=== PATIENT | female | born 1970 | race Caucasian/White ===

== ENCOUNTER 2019-05-26 13:51 | Outpatient (REF) | payer BC, SELFPAY ==
--- NOTE | 2019-05-26 11:45 | PAPFT_PTH ---
PATIENT: Nora Bowman LOC: [facility] U#:[id number] AGE/SX: 49/F ROOM: RE05/26/[address]: Silvia Muñoz APRN : 1970 BED: DIS: 05/26/2019 SPEC #: [id number] RECD: 05/29/19 13:04 STATUS: [place] GRADY #: [id number] CRISTY: 05/26/19 11:[address]: Silvia Muñoz DEPT: [facility] Cytology RECD BY: Diana Zaidi Tissues: 1 - CX/ENDOCX FOR PAP SMEARS Procedures: PAP THIN PREP/UVM Screening HPV DNA PROBE Comments: [id number]
== END 2019-05-26 14:11 ==
LOC: LBN 13:51
PROVIDERS: PCP Nurse Practitioner Adult Health; Visit Provider Nurse Practitioner Adult Health
DX: Z12.4 Encounter for screening for malignant neoplasm of cervix (principal); Z11.51 Encounter for screening for human papillomavirus (HPV)
CPT/HCPCS: 88142; 87624

== ENCOUNTER 2019-07-13 10:46 | Outpatient (CLI) | payer BC, SELFPAY ==
[2019-07-13 12:12] LABS: ALT 26 U/L (14-59); AST 16 U/L (15-37); Albumin 4.2 g/dL (3.4-5.0); Alkaline Phosphatase 96 U/L (46-116); Anion Gap 8.6 mmol/L (3-11); BUN 11 mg/dL (7-18); Bilirubin, Total 0.4 mg/dL (0.2-1.0); CO2 30.4 mmol/L (21.0-32.0); CREATININE 0.87 mg/dL (0.55-1.02); Calcium 9.6 mg/dL (8.5-10.1); Calculated LDL 133 mg/dL (<100); Chloride 105 mmol/L (98-107); Cholesterol 216 mg/dL (<200); Glucose 101 mg/dL (74-106); HDL Cholesterol 52 mg/dL (40-60); Potassium 4.3 mmol/L (3.5-5.1); Sodium 144 mmol/L (136-145); TSH (W/Ref FT4) 1.54 uIU/mL (0.36-3.74); Total Protein 7.3 g/dL (6.4-8.2); Triglyceride 157 mg/dL (<150)
== END 2019-07-13 11:06 ==
PROVIDERS: PCP Nurse Practitioner Adult Health; Visit Provider Nurse Practitioner Adult Health
DX: F32.9 Major depressive disorder, single episode, unspecified (principal); Z13.1 Encounter for screening for diabetes mellitus; Z13.220 Encounter for screening for lipoid disorders
CPT/HCPCS: 36415; 80053; 80061; 84443

== ENCOUNTER 2019-07-27 02:45 | Outpatient (CLI) | payer BC, SELFPAY ==
--- NOTE | 2019-07-27 09:15 | DI.MAMMO_ITS ---
EXAM: MG MAMMO SCREENING 60 MIN DUR CLINICAL HISTORY: screening, Z12.39 TECHNIQUE: Mammograms were interpreted according to the usual protocol including computer analysis w [employer] CAD system, tomosynthesis and C-view imaging. COMPARISON: 2009 FINDINGS: The breasts are composed of scattered fibroglandular densities, Breast Density category B. Bilateral breast implants are again noted which appear intact. No suspicious masses or suspicious microcalcifications are seen. No skin thickening or abnormal axillary lymph nodes are seen. There has been no significant change from prior exams. IMPRESSION: BIRADS Category 1, negative mammogram. Yearly screening mammography is recommended.
== END 2019-07-27 03:05 ==
PROVIDERS: PCP Nurse Practitioner Adult Health; Visit Provider Nurse Practitioner Adult Health
DX: Z12.31 Encounter for screening mammogram for malignant neoplasm of breast (principal); Z98.82 Breast implant status
CPT/HCPCS: 77063; 77067

== ENCOUNTER 2019-08-22 12:08 | Emergency (ER) | payer BC, SELFPAY ==
[2019-08-22 12:30] VITALS: BP 152/105; PULSE 86; RESP 18; TEMP 37.3; O2SAT 98
--- NOTE | 2019-08-22 12:45 | DI.RAD_ITS ---
EXAM: XR PORTABLE CHEST AP CLINICAL HISTORY: cough TECHNIQUE: COMPARISON: No exams were available for comparison FINDINGS: Portable views of chest were obtained. The heart is not enlarged. There are questionable faint calc ifications overlying the sub carinal region raising the possibility of healed granulomatous disease. No gross mediastinal contour abnormality seen. Lungs appear clear. No gross pleural effusion on this frontal film. IMPRESSION: No evidence of acute process.
--- NOTE | 2019-08-22 12:52 | W.ED.GENAD ---
Discharge Plan Disposition Patient Disposition: HOME Condition: Stable Discharge Details Chief Complaint: RespSymp Clinical Impression: Pneumonia Primary Care Provider: Silvia Muñoz ED Provider: Usman Shepherd Home Meds and New Rx's Prescriptions: New doxycycline hyclate 100 mg capsule 100 mg PO BID Qty: 13 RF: 0 fluconazole 150 mg tablet 150 mg PO Q3D Qty: 2 RF: 0 Continued fzvygvpusi-upmhddkdowuhk-eedy [Esgic] 50-325-40 mg tablet 1 tab PO Q6H PRNRF: 0 valacyclovir [Valtrex] 500 mg tablet 500 mg PO DAILY Qty: 90 RF: 3 Premarin 0.625 mg tablet 0.625 mg PO DAILY Qty: 90 RF: 3 bupropion HCl 150 mg tablet extended release 24 hr 150 mg PO QAM Qty: 90 RF: 3 Hold Instructions: Home Medication placed on hold at Doctor's office cbd-Curcumin 25 mg PO DAILY RF: 0 Mirena 20 mcg/24 hours (5 yrs) 52 mg intrauterine device 1 device IY ONCE RF: 0 bupropion HCl 300 mg tablet extended release 24 hr 300 mg PO QAM Qty: 90 RF: 3 gabapentin 300 mg capsule 300 mg PO QHS Qty: 14 RF: 0 Discharge Instructions Instructions: Pneumonia (ED) Additional Instructions: Please drink plenty of fluids to stay hydrated. Allow for plenty of rest. Take full course of antibiotic as prescribed. You have COVID testing pending. Please follow-up on this with your doctor. Please contact your primary care physician to arrange follow-up. Return to the ER for any worsening or new concerning symptoms. Referrals: Silvia Muñoz, COMMERCIAL SOLAR SALES CONSULTANT [Primary Care Provider] - Discharge Data Discharge Date/Time-TO BE ENTERED AT DEPARTURE: 08/22/19 14:05 Medical Decision Making 49-year-old female here with cough, congestion, fever over the past 6 days. Patient is saturating well in no respiratory distress. Patient is not septic appearing. Covid test has been performed outpatient and is pending at this time. Consider pneumonia versus bronchitis. Chest x-ray reviewed and interpreted by radiology: No acute cardiopulmonary disease. Plan to initiate treatment with doxycycline. Usual customary discharge instructions were provided. HPI General Mode of arrival: ambulatory. Date/Time Provider Initiated Documentation: 08/22/19 12:21. Limitations to Documentation: no limitations. Information obtained by: patient. HPI Narrative: 49-year-old female presents with chief complaint of cough. Patient notes she has had cough for the past 6 days. Cough has persisted. Cough is productive of clear sputum until today when she had blood mixed with sputum. She has had associated fever. Last fever couple days ago. She has associated fatigue. Patient has had shortness of breath and headache.. Patient also notes some discomfort in her right upper chest that is pleuritic. Patient denies smoking history. Related Data Home Medications Medication Instructions Recorded Confirmed cbd-Curcumin 25 mg PO DAILY 03/09/19 06/29/19 levonorgestrel 20 mcg/24 hours (5 1 device IY ONCE 03/09/19 06/29/19 yrs) 52 mg intrauterine device bupropion HCl 150 mg 24 hr tablet, 150 mg PO QAM #90 tab 03/21/19 06/29/19 extended release xurgiwmpsa-lrjyyjntuuqlx-akmkcrgw 1 tab PO Q6H PRN 03/21/19 06/29/19 50 mg-325 mg-40 mg tablet conjugated estrogens 0.625 mg 0.625 mg PO DAILY #90 tab 03/21/19 06/29/19 tablet valacyclovir 500 mg tablet 500 mg PO DAILY #90 tab 03/21/19 06/29/19 bupropion HCl 300 mg 24 hr tablet, 300 mg PO QAM #90 tab 05/26/19 06/29/19 extended release gabapentin 300 mg capsule 300 mg PO QHS #14 cap 06/29/19 06/29/19 doxycycline hyclate 100 mg PO BID #13 cap 08/22/19 fluconazole 150 mg PO Q3D #2 tab 08/22/19 Previous Rx's Medication Instructions Recorded bupropion HCl 150 mg 24 hr tablet, 150 mg PO QAM #90 tab 03/21/19 extended release conjugated estrogens 0.625 mg 0.625 mg PO DAILY #90 tab 03/21/19 tablet valacyclovir 500 mg tablet 500 mg PO DAILY #90 tab 03/21/19 bupropion HCl 300 mg 24 hr tablet, 300 mg PO QAM #90 tab 05/26/19 extended release gabapentin 300 mg capsule 300 mg PO QHS #14 cap 06/29/19 doxycycline hyclate 100 mg PO BID #13 cap 08/22/19 fluconazole 150 mg PO Q3D #2 tab 08/22/19 Allergies Allergy/AdvReac Type Severity Reaction Status Date / Time Sulfa (Sulfonamide Allergy Unverified 08/22/19 12:41 Antibiotics) General Stated Complaint: RespSymp DRE: 4 Review of Systems All systems reviewed & are unremarkable except as noted in HPI and below Cardiovascular Cardiovascular: Reports chest pain and Reports dyspnea Respiratory Respiratory: Reports cough and Reports dyspnea PFSH Medical History ADD (attention deficit disorder) (Chronic) h/o Vyvanse (constipation) & Adderall use Anxiety (Chronic) CBD Depression (Chronic) Wellbutrin Headache (Chronic) Chronic intermittent; migraine HSV (herpes simplex virus) infection (Chronic) Valtrex daily Impaired fasting glucose (Chronic) Glucose 101 07/2019 Obesity (Chronic) Sleeping difficulty (Chronic) CBD-Melatonin Surgical History Gastric bypass status for obesity (Acute ~05/2009) [place] H/O breast augmentation (Acute ~05/2002) 2002 History of appendectomy (Chronic) 1986 Previous section (Chronic) 2003 Family History Mother Anxiety Depression Hypertension Hyperlipidemia Diabetes T2 Father , From dementia with lewy body Anxiety Bladder cancer Depression Dementia Lewy body Social History Smoking/Tobacco Use Status: Never Alcohol Intake: current Alcohol Intake frequency: a few times a month Drug use: Occasionally Substance use type: marijuana Details: No IV Drug Use Adopted: No Household members: spouse Housing: house Communication Needs: None Do you need help understanding health information?: Never 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, [employer] Sexually active: Yes Do you think of yourself as: lesbian/tello/homosexual Current gender identity: female What type of physical activity do you participate in: walking Duration: 15-30 minutes/day Frequency: 1-2 times per week Seatbelt use: always Helmet use: Yes Working smoke detector in home: Yes Fire extinguisher in home: Yes Carbon monox detector in home: Yes Firearms in home: No Do you feel safe at home: Yes Do you feel safe in your relationship?: Yes History History 1 Para 1 Hx # Term Pregnancies Multiple births Hx # Pregnancies Ectopic pregnancies AB induced Hx Number of Living Children AB spontaneous Exam Const General: cooperative and no acute distress HENMT Mouth: moist mucous membranes Eyes Conjunctivae: normal conjunctivae Sclera: normal sclerae EOM: EOM intact bilaterally Neck Neck: trachea midline and supple Resp Effort & Inspection: normal respiratory effort, cough and no respiratory distress Auscultation: no rales, rhonchi (R>L) and no wheezes Cardio Jugular venous pressure: no JVD Rate: regular rate and not tachycardic Rhythm: regular rhythm Skin General skin exam: no rashes or lesions noted Neuro General: patient alert, patient awake and tone normal Extrem General: no edema Psych Appearance: grossly normal Mental Status: mental status grossly normal Course Vital Signs Vital signs: Vital Signs Temperature 37.3 C 08/22/19 12:30 Pulse 86 08/22/19 12:30 Respiratory Rate 18 08/22/19 12:30 Blood Pressure 152/105 H 08/22/19 12:30 Pulse Oximetry 98 08/22/19 12:30 Temperature 37.3 C 08/22/19 12:30 Temperature Source Skin 08/22/19 12:30 Pulse 86 08/22/19 12:30 Respiratory Rate 18 08/22/19 12:30 Respiratory Effort Non-Labored 08/22/19 12:39 Respiratory Depth Normal 08/22/19 12:39 Blood Pressure 152/105 H 08/22/19 12:30 Blood Pressure Position Sitting 08/22/19 12:30 Pulse Oximetry 98 08/22/19 12:30 Oxygen Delivery Method Room Air 08/22/19 12:30 Oxygen Flow Rate 0 08/22/19 12:30
[2019-08-22] MEDS: Doxycycline Hyclate 100 MG CAP PO (13:17)
== END 2019-08-22 14:05 | disposition home or self-care (01) ==
PROVIDERS: Emergency Provider Student in an Organized Health Care Education/Training Program; PCP Nurse Practitioner Adult Health
DX: J18.9 Pneumonia, unspecified organism (principal); R06.02 Shortness of breath
CPT/HCPCS: 99283; 71045

== ENCOUNTER 2019-09-06 10:29 | Outpatient (CLI) | payer BC, SELFPAY ==
[2019-09-06] MEDS: Omnipaque 350 MG/ML 100 ML BTL IJ (13:43)
--- NOTE | 2019-09-06 13:44 | DI.CT_ITS ---
EXAM: CT CHEST W CLINICAL HISTORY: Granulomatous disease, hempotysis, calcified lymph nodes, D71, R04.2, I89.8 TECHNIQUE: COMPARISON: XR PORTABLE CHEST AP from 08/22/2019 FINDINGS: CT examination of the chest was performed with bolus infusion of 70 cc of Omnipaque 350. Images obta ined through the upper abdomen show prior gastric surgery and unremarkable appearance of visualized p ortions of liver, spleen, pancreas, adrenals, and kidneys. There are calcified subcarinal lymph nodes consistent with healed granulomatous disease. Calcificati ons also present in left hilum. There are very subtle diffuse tree in bud opacities throughout both lungs, this is a nonspecific appe arance and may represent bronchiolitis, viral infection, or mycobacterial infection. No focal consol idation. No pleural effusion. Tracheobronchial tree appears intact. No gross mediastinal adenopathy no evide nce of pulmonary embolic disease or other major vascular abnormality no axillary or supraclavicular a denopathy. IMPRESSION: Mild diffuse pulmonary tree in bud opacities, this finding may be seen in multiple entities including mycobacterial infection, viral infection, diffuse bronchiolitis. Please correlate clinically.
== END 2019-09-06 10:49 ==
PROVIDERS: PCP Nurse Practitioner Adult Health; Visit Provider Nurse Practitioner Adult Health
DX: R05 Cough (principal); R04.2 Hemoptysis; I89.8 Other specified noninfective disorders of lymphatic vessels and lymph nodes; J84.10 Pulmonary fibrosis, unspecified; J98.4 Other disorders of lung
CPT/HCPCS: 71260; 82565; J3490

== ENCOUNTER 2021-03-18 12:35 | Outpatient (CLI) | payer OTHER, SELFPAY ==
[2021-03-18 13:00] LABS: Abs Immature Grans 0.02 10^3/uL (0.0-0.06); Absolute Basophil Count 0.04 10^3/uL (0.0-0.2); Absolute Lymphocyte Count 2.18 10^3/uL (1.2-3.4); Absolute Monocyte Count 0.43 10^3/uL (0.1-0.8); Absolute Neutrophil Count 3.53 10^3/uL (1.2-6.7); Basophils % 0.6; Eosinophils % 1.6; HCT 42.4 % (36.0-46.0); HGB 13.9 g/dL (11.2-15.7); Immature Grans % 0.3; Lymphocytes % 34.6; MCH 31.1 pg (27.0-33.0); MCHC 32.8 % (32.0-36.0); MCV 94.9 fL (80-95); MPV 10.3 fL (8.0-11.0); Monocytes % 6.8; Neutrophils % 56.1; Nucleated RBC 0 %; Platelet Count 313 10^3/uL (130-400); RBC 4.47 10^6/uL (3.93-5.22); RDW-SD 42.3 fL
[2021-03-18 13:03] LABS: Bilirubin Negative (Negative); Blood Negative (Negative); Clarity Clear (Clear); Glucose Negative (Negative); Ketones Negative (Negative); Leukocyte Esterase Trace (Negative); Nitrite Negative (Negative); Specific Gravity 1.025 (1.005-1.025); Urobilinogen 0.2 EU/dL (Up TO 0.2)
[2021-03-18 13:09] LABS: Bacteria Few HPF (Negative); C & S Indicated? Yes; Casts Negative LPF (Negative); Crystals Negative HPF (Negative); Epithelial Cells Few HPF (Negative); Mucus Negative (Negative); RBC 0-2 HPF (0-2)
[2021-03-18 13:29] LABS: Lipase 169 U/L (73-393)
[2021-03-18 13:35] LABS: ALT 26 U/L (14-59); AST 15 U/L (15-37); Albumin 4.2 g/dL (3.4-5.0); Alkaline Phosphatase 91 U/L (46-116); Anion Gap 7.8 mmol/L (3-11); BUN 14 mg/dL (7-18); Bilirubin, Total 0.2 mg/dL (0.2-1.0); CO2 29.2 mmol/L (21.0-32.0); Calcium 9.4 mg/dL (8.5-10.1); Chloride 108 mmol/L (98-107); Glucose 93 mg/dL (74-106); Potassium 4.5 mmol/L (3.5-5.1); Sodium 145 mmol/L (136-145); Total Protein 7.3 g/dL (6.4-8.2)
== END 2021-03-18 12:36 | disposition home or self-care (01) ==
LOC: LBO 12:36
PROVIDERS: PCP Nurse Practitioner Adult Health; Visit Provider Family Medicine
DX: K80.50 Calculus of bile duct without cholangitis or cholecystitis without obstruction (principal); R10.11 Right upper quadrant pain; R19.7 Diarrhea, unspecified
CPT/HCPCS: 36415; 80053; 83690; 87077; 81003; 81015; 85025; 87086; 87186

== ENCOUNTER 2021-09-11 14:16 | Emergency (ER) | payer OTHER, SELFPAY ==
[2021-09-11 14:27] VITALS: BP 139/65; PULSE 69; RESP 16; TEMP 36.9; O2SAT 97
--- NOTE | 2021-09-11 14:45 | RT.EKG_ITS ---
APPROVED REPORT Exam: Resting ECG Reason for Exam: mIDEPIGASTRIC PAIN, VOMITING Patient Location: E HR:71 bpm ECG Measurements Heart Rate 71 AXIS [place] 170 P 64 QRSd 93 QRS 75 QT 394 T 65 QTc 428 Conclusion Sinus rhythm...normal P axis, V-rate 60- 99 Probable left atrial enlargement...P >50mS, <-0.10mV V1 Anteroseptal infarct, age indeterminate...Q >35mS, T neg, V1-V2. Sinus. Normal axis. No STEMI. I have reviewed and interpreted ECG and agree with software generated interpretation.
--- NOTE | 2021-09-11 14:56 | ED.GENADUL_ITS ---
Discharge Plan Disposition Patient Disposition: HOME Condition: Stable Discharge Details Clinical Impression: UTI (urinary tract infection), Common bile duct dilatation, Gallstones Primary Care Provider: Silvia Muñoz ED Provider: Danae Adames Home Meds and New Rx's Prescriptions: New cephalexin 500 mg tablet 500 mg PO BID 7 Days Qty: 14 0RF Continued zmcfefdhpx-ywlrqydqhuuns-dmsx [Esgic] 50-325-40 mg tablet 1 tab PO Q6H PRN0RF Label Comments: for headache gabapentin 600 mg tablet 300 - 600 mg PO QHS Qty: 90 1RF Rx Instructions: Hot flashes, panic attacks bupropion HCl 300 mg tablet extended release 24 hr 300 mg PO QAM Qty: 90 3RF Rx Instructions: depression bupropion HCl 150 mg tablet extended release 24 hr 150 mg PO QAM Qty: 90 3RF Hold Instructions: Home Medication placed on hold at Doctor's office MethylPro 15 mg PO DAILY 0RF Label Comments: Mood (recommended by psychiatry) Mirena 20 mcg/24 hours (5 yrs) 52 mg intrauterine device 1 device IY ONCE 0RF cholecalciferol (vitamin D3) 125 mcg (5,000 unit) capsule 125 mcg PO DAILY 0RF omega-3 fatty acids [Fish Oil Concentrate] 1,000 mg capsule 1,000 mg PO DAILY 0RF clonazepam 0.5 mg tablet 0.5 mg PO DAILY PRN (Reason: acute anxiety) Qty: 30 1RF valacyclovir [Valtrex] 500 mg tablet 500 mg PO PRN PRN0RF Rx Instructions: HSV suppression Discharge Instructions Instructions: Biliary Colic (ED), Gallstones (ED), Urinary Tract Infection in Women (ED) Additional Instructions: There is a questionable dilated common bile duct near the gallbladder on the CT. The radiologist is recommending an MRI possibly for tomorrow. Radiology department can do an MRI for you tomorrow afternoon. An outpatient order for an MRCP was stat to the radiology department. They should call you to confirm this appointment. This could mean that you passed a gallstone or there is a gallstone stuck in your common bile duct. The labs are all largely within normal limits. Does show signs of a possible early urinary tract infection which we will give you antibiotics for. Please take the antibiotic twice a day with food for the next 7 days. You may also choose to discuss a MRCP with your primary care provider. However, if recurrent pain nausea vomiting or any concerns please return to the ER. Follow up with primary care provider in 3-5 days. Return to ED sooner if any worsening or concerns. Increase oral fluids. Please take Tylenol or Ibuprofen with food every 4-6 hours as needed for pain and swelling. Referrals: Silvia Muñoz, SENIOR ORACLE APPLICATIONS DEVELOPER [Primary Care Provider] - 3 days Discharge Data Discharge Date/Time-TO BE ENTERED AT DEPARTURE: 09/11/21 16:42 Medical Decision Making 51-year-old female presents to the ER with chief complaint of left flank pain. Patient reports that yesterday she had some midepigastric pain and some vomiting which has resolved. She does still have some lower abdominal pain. She endorses chills no fever she describes alternating constipation with diarrhea. She does have a past surgical history of a gastric sleeve and gastric bypass 2009 and . Does have a history of appendectomy. She did take her normal daily medications prior to arrival did not take any Tylenol or ibuprofen. Cardiac work-up ordered including EKG, serial troponins, lipase. Urinalysis. Will order a CT abdomen pelvis. Differential diagnosis includes but not limited to gastroenteritis, irritable bowel syndrome, coronary artery disease, viral illness, pyelonephritis, UTI. Labs largely unremarkable. Received call from Dr. Rodríguez radiologist regarding patient CT scan. There is dilatation of the common bile duct raising possibility with common bile duct obstruction. There is cholelithiasis noted he recommends MRCP possibly tomorrow. Outpatient order for MRCP completed I did speak with [employer] who states that it would be tomorrow afternoon if possible. Will discuss plan with patient and discharged to home. Urinalysis shows trace blood, small leukocytes 5-10 WBCs culture is pending at this time. Will treat empirically for possible UTI. LB 1600 I initially signed up for this patient however her diagnostic study returned and she was discharged by Libra Feldman prior to my involvement in this patient HPI General Mode of arrival: ambulatory . Date/Time Provider Initiated Documentation: 09/11/21 14:48 . Limitations to Documentation: no limitations . Information obtained by: patient, RN notes reviewed and old records reviewed . HPI Narrative: 51-year-old female presents to the ER with chief complaint of left flank pain. Patient reports that yesterday she had some midepigastric pain and some vomiting which has resolved. She does still have some lower abdominal pain. She endorses chills no fever she describes alternating constipation with diarrhea. She does have a past surgical history of a gastric sleeve and gastric bypass 2009 and . Does have a history of appendectomy. She did take her normal daily medications prior to arrival did not take any Tylenol or ibuprofen. Related Data Home Medications Medication Instructions Recorded Confirmed levonorgestrel 20 mcg/24 hours (7 1 device IY ONCE 03/09/19 09/11/21 yrs) 52 mg intrauterine device (Mirena) asjijkfaio-hsnjvjsqgfrgc-aygokpmg 1 tab PO Q6H PRN 03/21/19 09/11/21 50 mg-325 mg-40 mg tablet (Esgic) bupropion HCl 150 mg 24 hr tablet, 150 mg PO QAM #90 tab 02/17/21 09/11/21 extended release bupropion HCl 300 mg 24 hr tablet, 300 mg PO QAM #90 tab 02/17/21 09/11/21 extended release gabapentin 600 mg tablet 300 - 600 mg PO QHS #90 tab 02/17/21 09/11/21 MethylPro 15 mg PO DAILY 02/18/21 09/11/21 cholecalciferol (vitamin D3) 125 125 mcg PO DAILY 03/18/21 09/11/21 mcg (5,000 unit) capsule clonazepam 0.5 mg tablet 0.5 mg PO DAILY PRN #30 tab 05/16/21 09/11/21 omega-3 fatty acids 1,000 mg 1,000 mg PO DAILY 05/16/21 09/11/21 capsule (Fish Oil Concentrate) cephalexin 500 mg tablet 500 mg PO BID 7 Days #14 tab 09/11/21 valacyclovir 500 mg tablet 500 mg PO PRN PRN 09/11/21 09/11/21 (Valtrex) Previous Rx's Medication Instructions Recorded bupropion HCl 150 mg 24 hr tablet, 150 mg PO QAM #90 tab 02/17/21 extended release bupropion HCl 300 mg 24 hr tablet, 300 mg PO QAM #90 tab 02/17/21 extended release gabapentin 600 mg tablet 300 - 600 mg PO QHS #90 tab 02/17/21 clonazepam 0.5 mg tablet 0.5 mg PO DAILY PRN #30 tab 05/16/21 cephalexin 500 mg tablet 500 mg PO BID 7 Days #14 tab 09/11/21 Allergies Allergy/AdvReac Type Severity Reaction Status Date / Time Sulfa (Sulfonamide Allergy Verified 07/09/21 08:51 Antibiotics) General Stated Complaint: Nk/Back Pain DRE: 3 Review of Systems All systems reviewed & are unremarkable except as noted in HPI and below Gastrointestinal Gastrointestinal: Reports abdominal pain, Denies diarrhea, Reports nausea (Resolved) and Reports vomiting (Resolved) Genitourinary Genitourinary: Reports as per HPI, Reports dysuria and Reports flank pain PFSH All Active Problems UTI (urinary tract infection) (Acute) Common bile duct dilatation (Acute) Gallstones (Acute) Cholelithiasis (Acute) Impaired fasting glucose (Chronic) Glucose 101 07/2019 Generalized anxiety disorder (Chronic) Sleeping difficulty (Chronic) CBD-Melatonin HSV (herpes simplex virus) infection (Chronic) Valtrex daily Headache (Chronic) Chronic intermittent; migraine Depression (Chronic) Wellbutrin Obesity (Chronic) ADD (attention deficit disorder) (Chronic) h/o Vyvanse (constipation) & Adderall use Medical History Cough with hemoptysis 09/25/19 Telehealth with [facility] Pulomonlogy; self-limited & resolved; Pulm states no further work-up needed, unless reoccurs--then revisit pulm with CT- chest, bronch, labs, etc. (Klaudia Sanches MD at [facility]) Granulomatous disease CT shows groundglass nodular opacities (with f/u resolved); [facility] Pulm Linden Mina MD Mediastinal adenopathy 09/25/19 Telehealth with [facility] Pulmonology, No further F/U since condition resolved; if recurs-->[facility] Pulm/Monica Mina Surgical History Gastric bypass status for obesity (~05/2009) [place] H/O breast augmentation (~05/2002) 2003 History of appendectomy 1986 Previous section 2003 Tarsal tunnel syndrome With repair 2009 ([place]) Family History Mother Anxiety Depression Hypertension Hyperlipidemia Diabetes T2 Father , From dementia with lewy body Anxiety Bladder cancer Depression Dementia Lewy body Social History Smoking/Tobacco Use Status: Never Smoking risk assessment performed?: Yes Alcohol Intake: current Alcohol Intake frequency: a few times a month Drug use: Occasionally Substance use type: marijuana Details: No IV Drug Use Adopted: No Household members: spouse Housing: house Communication Needs: None Do you need help understanding health information?: Never 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[employer], [employer] Sexually active: Yes Do you think of yourself as: lesbian/tello/homosexual Current gender identity: female What type of physical activity do you participate in: walking Duration: 15-30 minutes/day Frequency: 1-2 times per week Seatbelt use: always Helmet use: Yes Working smoke detector in home: Yes Fire extinguisher in home: Yes Carbon monox detector in home: Yes Firearms in home: No Do you feel safe at home: Yes Do you feel safe in your relationship?: Yes History History 1 Para 1 Hx # Term Pregnancies Multiple births Hx # Pregnancies Ectopic pregnancies AB induced Hx Number of Living Children AB spontaneous Exam Narrative Exam Narrative: Constitutional: Alert and oriented x3. Appears stated age. Normal body habitus. Head: Normocephalic, no trauma. Eyes: Pupils PERRL, Red reflex noted, EOM's intact. Eyelids symmetrical without lesions, discharge, or swelling. ENT: Bilateral TM's WNL, External ear normal to inspection, no mastoid TTP, swelling, or erythema, Nasal turbinates WNL, no nasal discharge. Normal dentition, Posterior pharynx WNL, no exudate. Chest: RRR, Normal S1, S2, distal pulses intact. Resp: Lungs clear to auscultation bilaterally, no wheezes, rales, or rhonchi. Abdomen: Soft, non-distended, Normoactive bowel sounds all 4 quads. Musculoskeletal: Normal gait, 5/5 strength to all four extremities. Skin: No suspicious rashes or lesions. Capillary refill less than 2 sec. Neurologic: Cranial nerves II-XII intact. Alert and oriented x 3. Motor: No deficits noted. Sensory: Intact bilaterally all 4 extremities. Reflexes: DTR's intact bilaterally.. Hematologic/Lymphatic: No ecchymosis, no lymphadenopathy. Course Vital Signs Vital signs: Vital Signs Temperature 36.9 C 09/11/21 14:27 Pulse 69 09/11/21 14:27 Respiratory Rate 16 09/11/21 14:27 Blood Pressure 139/65 09/11/21 14:27 Pulse Oximetry 97 09/11/21 14:27 Temperature 36.9 C 09/11/21 14:27 Pulse 69 09/11/21 14:27 Respiratory Rate 16 09/11/21 14:27 Respiratory Effort 09/11/21 14:40 Blood Pressure 139/65 09/11/21 14:27 Pulse Oximetry 97 09/11/21 14:27 Oxygen Delivery Method Room Air 09/11/21 14:27 Oxygen Flow Rate 0 09/11/21 14:27 Pain Level 7 09/11/21 14:27 Comment 09/11/21 14:27 Sign Out Sign Out Data: Sign Out Comment: Midepigastric abdominal pain, nausea vomiting yesterday which has resolved. Here with left flank pain. Pending CT abdomen pelvis. Does have leukocyte in urine. Possible UTI. Cardiac workup ordered and negative. Last updated by Danae Adames at 09/11/21 16:05
--- NOTE | 2021-09-11 15:00 | DI.CT_ITS ---
Exam(s) CT ABDOMEN PELVIS W EXAM: CT ABDOMEN PELVIS W INDICATION: N/V/D, Abdominal Pain. COMPARISON: CT CT CHEST W from 09/06/2019 TECHNIQUE: FINDINGS: CT examination of the abdomen and pelvis was performed with a bolus infusion of 100 cc of Omnipaque 3 50. Images obtained through the lung bases are unremarkable. Prior gastric surgery noted. The liver is unremarkable in appearance. The gallbladder contains stones and is distended. No gross gallbladder wall thickening or pericholec ystic fluid collection. There is extrahepatic biliary dilatation, with 13-14 millimeter maximal diam eter common bile duct tapering in the head of the pancreas. No definite obstructing stone seen. No definite pancreatic head lesion.. Pancreas appears normal. Spleen is unremarkable in appearance. Adrenals appear normal. The kidneys are unremarkable with no evidence of hydronephrosis, nephrolithiasis, or renal mass.. Ur inary bladder is nearly empty and cannot be evaluated.. Abdominal aorta is of normal diameter and no major vascular abnormality is seen. No abdominal wall hernia. No abdominal or pelvic adenopathy. VOUCHER EXAMINER structures appear intact with an IUD in place in the uterus.. Appendix is not specifically visualized but there is no evidence of appendicitis.. No evidence of di verticulitis or bowel obstruction. IMPRESSION: Dilatation of the common bile duct, raising the possibility of a distal common bile duct obstruction of uncertain etiology. Cholelithiasis is noted. Additional evaluation with MRCP is suggested.. RADIATION DOSE DELIVERED: 1,059.94mGy.cm Total DLP 1,059.94mGy.cm Total DLP !Error CTDIvol RADIATION OPTIMIZATION: All CT scans at this facility use at least one of these dose optimization te chniques: automated exposure control; mA and/or kV adjustment per patient size (includes targeted exa ms where dose is matched to clinical indication); or iterative reconstruction.
[2021-09-11 15:10] LABS: Abs Immature Grans 0.03 10^3/uL (0.0-0.06); Absolute Basophil Count 0.03 10^3/uL (0.0-0.2); Absolute Eosinophil Count 0.11 10^3/uL (0.0-0.7); Absolute Lymphocyte Count 2.27 10^3/uL (1.2-3.4); Absolute Monocyte Count 0.47 10^3/uL (0.1-0.8); Absolute Neutrophil Count 7.17 10^3/uL (1.2-6.7); Basophils % 0.3; Eosinophils % 1.1; HCT 43.7 % (36.0-46.0); HGB 14.4 g/dL (11.2-15.7); Immature Grans % 0.3; Lymphocytes % 22.5; MCH 31.2 pg (27.0-33.0); MCV 94.8 fL (80-95); MPV 10.2 fL (8.0-11.0); Monocytes % 4.7; Neutrophils % 71.1; Platelet Count 340 10^3/uL (130-400); RBC 4.61 10^6/uL (3.93-5.22); RDW 12.6 % (11.7-14.6); WBC 10.08 10^3/uL (4.4-10.8)
[2021-09-11 15:12] LABS: Bilirubin Negative (Negative); Blood Trace-intact (Negative); Clarity Clear (Clear); Glucose Negative (Negative); Ketones Negative (Negative); Leukocyte Esterase Small (Negative); Nitrite Negative (Negative); Specific Gravity 1.015 (1.005-1.025); Urobilinogen 0.2 EU/dL (Up TO 0.2)
[2021-09-11 15:19] LABS: Bacteria Moderate HPF (Negative); C & S Indicated? Yes; Casts Negative LPF (Negative); Crystals Negative HPF (Negative); Epithelial Cells Few HPF (Negative); Mucus Negative (Negative); RBC 0-2 HPF (0-2)
[2021-09-11 15:25] LABS: ALT 39 U/L (14-59); AST 22 U/L (15-37); Albumin 4.3 g/dL (3.4-5.0); Alkaline Phosphatase 91 U/L (46-116); Anion Gap 10.7 mmol/L (3-11); BUN 18 mg/dL (7-18); Bilirubin, Total 0.3 mg/dL (0.2-1.0); CO2 27.3 mmol/L (21.0-32.0); Calcium 9.5 mg/dL (8.5-10.1); Chloride 106 mmol/L (98-107); Glucose 96 mg/dL (74-106); Lipase 206 U/L (73-393); Magnesium 2.2 mg/dL (1.8-2.4); Potassium 3.8 mmol/L (3.5-5.1); Sodium 144 mmol/L (136-145); Total Protein 7.8 g/dL (6.4-8.2); Troponin I < 50 ng/L (<or=60)
[2021-09-11] MEDS: Omnipaque 350 MG/ML 100 ML BTL IJ (15:52)
[2021-09-11 16:43] VITALS: BP 128/72; PULSE 72; RESP 16; TEMP 36.6; O2SAT 99
[2021-09-11] MEDS: Cephalexin 500 MG CAP PO (16:44)
--- NOTE | 2021-09-12 09:33 | ED.PROG_ITS ---
Date of service: 09/12/21 Time of Service: 09:34 Medical Decision Making Call received from radiology regarding MRCP which was ordered yesterday. They are requesting prior authorization. Case number was provided to me and request to do [id number] discussion. I did speak with Dr. Parker with [facility] regarding the case. Patient does qualify for MRCP without due to CBD dilation. Authorization number [id number] was given to radiology department. Sign Out Sign Out Data: Sign Out Comment: Midepigastric abdominal pain, nausea vomiting yesterday which has resolved. Here with left flank pain. Pending CT abdomen pelvis. Does have leukocyte in urine. Possible UTI. Cardiac workup ordered and negative. Last updated by Danae Adames at 09/11/21 16:05 Discharge Plan Disposition Patient Disposition: HOME Condition: Stable Discharge Details Clinical Impression: UTI (urinary tract infection), Common bile duct dilatation, Gallstones Primary Care Provider: Silvia Muñoz ED Provider: Danae Adames Home Meds and New Rx's Prescriptions: New cephalexin 500 mg tablet 500 mg PO BID 7 Days Qty: 14 0RF Continued kqkefkxtjz-velojtcumbfao-bdpf [Esgic] 50-325-40 mg tablet 1 tab PO Q6H PRN0RF Label Comments: for headache gabapentin 600 mg tablet 300 - 600 mg PO QHS Qty: 90 1RF Rx Instructions: Hot flashes, panic attacks bupropion HCl 300 mg tablet extended release 24 hr 300 mg PO QAM Qty: 90 3RF Rx Instructions: depression bupropion HCl 150 mg tablet extended release 24 hr 150 mg PO QAM Qty: 90 3RF Hold Instructions: Home Medication placed on hold at Doctor's office MethylPro 15 mg PO DAILY 0RF Label Comments: Mood (recommended by psychiatry) Mirena 20 mcg/24 hours (5 yrs) 52 mg intrauterine device 1 device IY ONCE 0RF cholecalciferol (vitamin D3) 125 mcg (5,000 unit) capsule 125 mcg PO DAILY 0RF omega-3 fatty acids [Fish Oil Concentrate] 1,000 mg capsule 1,000 mg PO DAILY 0RF clonazepam 0.5 mg tablet 0.5 mg PO DAILY PRN (Reason: acute anxiety) Qty: 30 1RF valacyclovir [Valtrex] 500 mg tablet 500 mg PO PRN PRN0RF Rx Instructions: HSV suppression Discharge Instructions Instructions: Biliary Colic (ED), Gallstones (ED), Urinary Tract Infection in Women (ED) Additional Instructions: There is a questionable dilated common bile duct near the gallbladder on the CT. The radiologist is recommending an MRI possibly for tomorrow. Radiology depar tment can do an MRI for you tomorrow afternoon. An outpatient order for an MRCP was stat to the radiology department. They should call you to confirm this appointment. This could mean that you passed a gallstone or there is a gallstone stuck in your common bile duct. The labs are all largely within normal limits. Does show signs of a possible early urinary tract infection which we will give you antibiotics for. Please take the antibiotic twice a day with food for the next 7 days. You may also choose to discuss a MRCP with your primary care provider. However, if recurrent pain nausea vomiting or any concerns please return to the ER. Follow up with primary care provider in 3-5 days. Return to ED sooner if any worsening or concerns. Increase oral fluids. Please take Tylenol or Ibuprofen with food every 4-6 hours as needed for pain and swelling. Referrals: Silvia Muñoz NP [Primary Care Provider] - 3 days Discharge Data Discharge Date/Time-TO BE ENTERED AT DEPARTURE: 09/11/21 16:42
== END 2021-09-11 16:42 | disposition home or self-care (01) ==
PROVIDERS: Emergency Provider Registered Nurse Emergency; PCP Nurse Practitioner Adult Health
DX: N39.0 Urinary tract infection, site not specified (principal); B96.20 Unspecified Escherichia coli [E. coli] as the cause of diseases classified elsewhere; K83.8 Other specified diseases of biliary tract; K80.80 Other cholelithiasis without obstruction
CPT/HCPCS: 36415; 80053; 83690; 87077; 93005; 99285; 74177; 81003; 81015; 83735; 84484; 85025; 87086; 87186; 93010; 99284; J3490

== ENCOUNTER 2021-09-12 16:01 | Emergency (ER) | payer OTHER, SELFPAY ==
[2021-09-12 16:05] VITALS: BP 112/68; PULSE 73; RESP 16; TEMP 37.1; O2SAT 96
--- NOTE | 2021-09-12 16:32 | ED.GENADUL_ITS ---
Discharge Plan Disposition Patient Disposition: HOME Condition: Stable Discharge Details Clinical Impression: Common bile duct dilatation, Cholelithiasis Primary Care Provider: Silvia Muñoz ED Provider: Miah Barros Home Meds and New Rx's Prescriptions: Continued lyexjdtgba-ylpbjjzjruacl-icov [Esgic] 50-325-40 mg tablet 1 tab PO Q6H PRN0RF Label Comments: for headache gabapentin 600 mg tablet 300 - 600 mg PO QHS Qty: 90 1RF Rx Instructions: Hot flashes, panic attacks bupropion HCl 300 mg tablet extended release 24 hr 300 mg PO QAM Qty: 90 3RF Rx Instructions: depression bupropion HCl 150 mg tablet extended release 24 hr 150 mg PO QAM Qty: 90 3RF Hold Instructions: Home Medication placed on hold at Doctor's office MethylPro 15 mg PO DAILY 0RF Label Comments: Mood (recommended by psychiatry) Mirena 20 mcg/24 hours (5 yrs) 52 mg intrauterine device 1 device IY ONCE 0RF cholecalciferol (vitamin D3) 125 mcg (5,000 unit) capsule 125 mcg PO DAILY 0RF omega-3 fatty acids [Fish Oil Concentrate] 1,000 mg capsule 1,000 mg PO DAILY 0RF clonazepam 0.5 mg tablet 0.5 mg PO DAILY PRN (Reason: acute anxiety) Qty: 30 1RF valacyclovir [Valtrex] 500 mg tablet 500 mg PO PRN PRN0RF Rx Instructions: HSV suppression cephalexin 500 mg tablet 500 mg PO BID 7 Days Qty: 14 0RF Discharge Instructions Instructions: Gallstones (ED) Additional Instructions: Your imaging today did not reveal any obvious process. The common bile is slightly dilated and you do have 2 stones within the gallbladder but no signs of stone within the bile duct or evidence of obstruction. Please watch for new or worsening symptoms and return to the ER for any concerns. Follow instructions given to you yesterday at discharge can continue taking antibiotics. I have given you the name and number of our local surgical team, I do recommend reaching out to their office on Wednesday to discuss your ER visit, symptoms, abnormal imaging, and need for outpatient reevaluation. Referrals: Shivani Germain DO [OSTEOPATHIC DOCTOR] - Medical Decision Making 51-year-old female seen in the ER yesterday, work-up completed and sent for a MRI of the abdomen without contrast today for further evaluation of abdominal pain and bile duct dilatation. Patient states that she is actually feeling much improved today, denies any nausea or vomiting. Denies fever. No radiation into her back. Reports that the pain is significantly improved when compared to yesterday. We discussed the MRI results, cholelithiasis, extrahepatic biliary ductal dilatation without evidence of choledocholithiasis. No MRI evidence of a pancreatic mass. We discussed that the next step is likely a surgical referral but this would be nonemergent. I recommend giving their office a call Wednesday morning. We discussed rechecking laboratory values but given her benign exam, improving symptoms, likely little value. Patient is comfortable this plan and has no additional questions or concerns. She is comfortable with discharge and her current condition and will follow the instructions given to her yesterday, continue with antibiotics. Standard discharge and return precautions were provided. This documentation was generated using [employer] system, please disregard any oddities of phrase or misspellings. Medical Records Medical records reviewed: Yes I reviewed the patient's medical records. Imaging Data Radiologic Study: Attestation: I personally reviewed and interpreted this imaging study as follows: Imaging: MRI Radiologist's impression: Exam(s) MR ABDOMEN WO EXAM: MR ABDOMEN WO CLINICAL HISTORY: DILATED CBD,H/O NAUSEA,VOMITING,? RETAINED GALLSTONE TECHNIQUE: Multiplanar multisequence MRA of the Abdomen was performed. COMPARISON: CT CT ABDOMEN PELVIS W from 09/11/2021 FINDINGS: Liver: Unremarkable. Pancreas: Unremarkable. Gallbladder and Bile Ducts: The common duct is dilated up to 1.6 cm. No intraductal stones are seen. There is no evidence of a pancreatic mass. There are 2 of large stone seen within the gallbladder. No pericholecystic fluid. Adrenals: Unremarkable. Kidneys: Unremarkable. Spleen: Unremarkable. Bowel: Unremarkable. Aorta: Unremarkable. Soft Tissues: The patient has bilateral breast implants. Bone: Unremarkable. Lymph Nodes: Unremarkable. IMPRESSION: 1. Cholelithiasis. 2. Extrahepatic biliary ductal dilatation. No evidence of choledocholithiasis. 3. No MRI evidence of a pancreatic mass. 4. Results of this exam have been verbally communicated with provider. HPI General Mode of arrival: ambulatory . Date/Time Provider Initiated Documentation: 09/12/21 16:09 . Limitations to Documentation: no limitations . Information obtained by: patient . History of Present Illness 51 year old F presents to the emergency department with the chief complaint of abd pain, MR results, described as mild, with intensity rated at 2. Quality is described as aching, and is localized to the abdomen. Patient reports no radiation. Patient started experiencing this day(s) (2) and it has been other (improving). improves with No relieving factors improve symptom(s), No exacerbating factors reported . Patient notes no other symptoms.. Patient did receive the following treatments prior to arrival, none Related Data Home Medications Medication Instructions Recorded Confirmed levonorgestrel 20 mcg/24 hours (7 1 device IY ONCE 03/09/19 09/11/21 yrs) 52 mg intrauterine device (Mirena) pijmvcxirw-hufksmgvibkph-lxrfqpnb 1 tab PO Q6H PRN 03/21/19 09/11/21 50 mg-325 mg-40 mg tablet (Esgic) bupropion HCl 150 mg 24 hr tablet, 150 mg PO QAM #90 tab 02/17/21 09/11/21 extended release bupropion HCl 300 mg 24 hr tablet, 300 mg PO QAM #90 tab 02/17/21 09/11/21 extended release gabapentin 600 mg tablet 300 - 600 mg PO QHS #90 tab 02/17/21 09/11/21 MethylPro 15 mg PO DAILY 02/18/21 09/11/21 cholecalciferol (vitamin D3) 125 125 mcg PO DAILY 03/18/21 09/11/21 mcg (5,000 unit) capsule clonazepam 0.5 mg tablet 0.5 mg PO DAILY PRN #30 tab 05/16/21 09/11/21 omega-3 fatty acids 1,000 mg 1,000 mg PO DAILY 05/16/21 09/11/21 capsule (Fish Oil Concentrate) cephalexin 500 mg tablet 500 mg PO BID 7 Days #14 tab 09/11/21 valacyclovir 500 mg tablet 500 mg PO PRN PRN 09/11/21 09/11/21 (Valtrex) Previous Rx's Medication Instructions Recorded bupropion HCl 150 mg 24 hr tablet, 150 mg PO QAM #90 tab 02/17/21 extended release bupropion HCl 300 mg 24 hr tablet, 300 mg PO QAM #90 tab 02/17/21 extended release gabapentin 600 mg tablet 300 - 600 mg PO QHS #90 tab 02/17/21 clonazepam 0.5 mg tablet 0.5 mg PO DAILY PRN #30 tab 05/16/21 cephalexin 500 mg tablet 500 mg PO BID 7 Days #14 tab 09/11/21 Allergies Allergy/AdvReac Type Severity Reaction Status Date / Time Sulfa (Sulfonamide Allergy Verified 07/09/21 08:51 Antibiotics) General Stated Complaint: Recheck DRE: 4 Review of Systems Constitutional Constitutional: Denies fever(s) Cardiovascular Cardiovascular: Denies chest pain Gastrointestinal Gastrointestinal: Reports abdominal pain, Reports constipation, Denies diarrhea, Denies nausea and Denies vomiting Genitourinary Genitourinary: Denies abnormal vaginal bleeding, Denies dysuria and Denies vaginal discharge Musculoskeletal Musculoskeletal: Denies back pain PFSH All Active Problems UTI (urinary tract infection) (Acute) Common bile duct dilatation (Acute) Gallstones (Acute) Cholelithiasis (Acute) Impaired fasting glucose (Chronic) Glucose 101 07/2019 Generalized anxiety disorder (Chronic) Sleeping difficulty (Chronic) CBD-Melatonin HSV (herpes simplex virus) infection (Chronic) Valtrex daily Headache (Chronic) Chronic intermittent; migraine Depression (Chronic) Wellbutrin Obesity (Chronic) ADD (attention deficit disorder) (Chronic) h/o Vyvanse (constipation) & Adderall use Medical History Cough with hemoptysis 09/25/19 Telehealth with [facility] [place] Pulomonlogy; self-limited & resolved; Pulm states no further work-up needed, unless reoccurs--then revisit pulm with CT- chest, bronch, labs, etc. (Klaudia Sanches MD at [facility] [place]) Granulomatous disease CT shows groundglass nodular opacities (with f/u resolved); [facility] [place] Pulm Linden Mina MD Mediastinal adenopathy 09/25/19 Telehealth with [facility] [place] Pulmonology, No further F/U since condition resolved; if recurs-->[facility] [place] Pulm/Monica Mina Surgical History Gastric bypass status for obesity (~05/2009) [place] ([place]) H/O breast augmentation (~05/2002) 2002 History of appendectomy 1986 Previous section 2003 Tarsal tunnel syndrome With repair 2010 ([place]) Family History Mother Anxiety Depression Hypertension Hyperlipidemia Diabetes T2 Father , From dementia with lewy body Anxiety Bladder cancer Depression Dementia Lewy body Social History Smoking/Tobacco Use Status: Never Smoking risk assessment performed?: Yes Alcohol Intake: current Alcohol Intake frequency: a few times a month Drug use: Occasionally Substance use type: marijuana Details: No IV Drug Use Adopted: No Household members: spouse Housing: house Communication Needs: None Do you need help understanding health information?: Never 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, [employer] Sexually active: Yes Do you think of yourself as: lesbian/tello/homosexual Current gender identity: female What type of physical activity do you participate in: walking Duration: 15-30 minutes/day Frequency: 1-2 times per week Seatbelt use: always Helmet use: Yes Working smoke detector in home: Yes Fire extinguisher in home: Yes Carbon monox detector in home: Yes Firearms in home: No Do you feel safe at home: Yes Do you feel safe in your relationship?: Yes History History 1 Para 1 Hx # Term Pregnancies Multiple births Hx # Pregnancies Ectopic pregnancies AB induced Hx Number of Living Children AB spontaneous Exam Const General: cooperative, healthy appearing, comfortable and no acute distress Orientation: alert and awake HENMT Head: normal to inspection, normocephalic and atraumatic Eyes Conjunctivae: conjunctivae normal Neck Neck: normal visual inspection, trachea midline and supple Resp Effort & Inspection: normal respiratory effort and able to speak in complete sentences Cardio Rate: regular rate Rhythm: regular rhythm GI Palpation: soft, not firm, no guarding, no pulsatile masses and tender in the epigastrum (mild); Negative for with no rebound tenderness Back/Spine/Pelvis Back: No back tenderness Skin General skin exam: no rashes or lesions noted Neuro General: patient alert, patient awake, moves all extremities and no focal motor deficits Sensory Exam: no sensory deficits noted Psych Appearance: grossly normal Mental Status: mental status grossly normal Course Vital Signs Vital signs: Vital Signs Temperature 37.1 C 09/12/21 16:05 Pulse 73 09/12/21 16:05 Respiratory Rate 16 09/12/21 16:05 Blood Pressure 112/68 09/12/21 16:05 Pulse Oximetry 96 09/12/21 16:05 Temperature 37.1 C 09/12/21 16:05 Temperature Source Temporal Artery Scan 09/12/21 16:05 Pulse 73 09/12/21 16:05 Respiratory Rate 16 09/12/21 16:05 Respiratory Effort Non-Labored 09/12/21 16:08 Blood Pressure 112/68 09/12/21 16:05 Blood Pressure Position Sitting 09/12/21 16:05 Pulse Oximetry 96 09/12/21 16:05 Oxygen Delivery Method Room Air 09/12/21 16:05 Oxygen Flow Rate 0 09/12/21 16:05
== END 2021-09-12 16:44 | disposition home or self-care (01) ==
PROVIDERS: Emergency Provider Physician Assistant; PCP Nurse Practitioner Adult Health
DX: K80.20 Calculus of gallbladder without cholecystitis without obstruction (principal); K83.8 Other specified diseases of biliary tract

== ENCOUNTER 2021-09-12 18:24 | Outpatient (CLI) | payer OTHER, SELFPAY ==
--- NOTE | 2021-09-12 | DI.MRI_ITS ---
Exam(s) MR ABDOMEN WO EXAM: MR ABDOMEN WO CLINICAL HISTORY: DILATED CBD,H/O NAUSEA,VOMITING,? RETAINED GALLSTONE TECHNIQUE: Multiplanar multisequence MRA of the Abdomen was performed. COMPARISON: CT CT ABDOMEN PELVIS W from 09/11/2021 FINDINGS: Liver: Unremarkable. Pancreas: Unremarkable. Gallbladder and Bile Ducts: The common duct is dilated up to 1.6 cm. No intraductal stones are seen. There is no evidence of a pancreatic mass. There are 2 of large stone seen within the gallbladder. No pericholecystic fluid. Adrenals: Unremarkable. Kidneys: Unremarkable. Spleen: Unremarkable. Bowel: Unremarkable. Aorta: Unremarkable. Soft Tissues: The patient has bilateral breast implants. Bone: Unremarkable. Lymph Nodes: Unremarkable. IMPRESSION: 1. Cholelithiasis. 2. Extrahepatic biliary ductal dilatation. No evidence of choledocholithiasis. 3. No MRI evidence of a pancreatic mass. 4. Results of this exam have been verbally communicated with provider. DATA REPOSITORY:
== END 2021-09-12 18:44 ==
LOC: DI 18:25
PROVIDERS: PCP Nurse Practitioner Adult Health; Visit Provider Registered Nurse Emergency
DX: R11.2 Nausea with vomiting, unspecified (principal); K83.8 Other specified diseases of biliary tract; K80.20 Calculus of gallbladder without cholecystitis without obstruction
CPT/HCPCS: 74181

== ENCOUNTER 2021-10-29 18:28 | Outpatient (REF) | payer OTHER, SELFPAY | END 2021-10-29 18:29 | disposition home or self-care (01) | LOC: LBN 18:28 | PROVIDERS: PCP Nurse Practitioner Adult Health; Visit Provider Nurse Practitioner Adult Health | DX: R30.0 Dysuria (principal) | CPT/HCPCS: 87077; 87086; 87186 ==

== ENCOUNTER 2022-07-21 13:31 | Emergency (ER) | payer BC, SELFPAY ==
[2022-07-21] VITALS (16 sets, daily range): BP systolic 117–132; BP diastolic 72–94; PULSE 62–83; RESP 2–20; TEMP 36.6–36.8; O2SAT 93–100
--- NOTE | 2022-07-21 13:45 | RT.EKG_ITS ---
APPROVED REPORT Exam: Resting ECG Reason for Exam: Right upper quadrant pain Patient Location: E HR:62 bpm ECG Measurements Heart Rate 62 AXIS AR 182 P 63 QRSd 88 QRS 85 QT 392 T 64 QTc 399 Conclusion Sinus rhythm...normal P axis, V-rate 60- 99 Probable left atrial enlargement...P >50mS, <-0.10mV V1 Anteroseptal infarct, age indeterminate...Q >35mS, T neg, V1-V2 narrow complex normal sinus rhythm at a rate of 62. Normal axis. No ST segment abnormalities. No T wave inversions. T wave inversion in aVL. Appears similar to prior dated last year.
--- NOTE | 2022-07-21 13:53 | DI.US_ITS ---
Exam(s) US ABDOMEN LIMITED EXAM: US ABDOMEN LIMITED CLINICAL HISTORY: Right upper quadrant pain TECHNIQUE: Ultrasound abdomen performed using standard protocol. COMPARISON: US US ABDOMEN from 03/27/[address] ABDOMEN PELVIS W from 09/11/2021 FINDINGS: PANCREAS: Normal where visualized. LIVER: Normal. Hepatopedal flow in the Portal Vein. The liver measures in 16.6 cm length. GALLBLADDER:Gallstones are present. No evidence of wall thickening. No pericholecystic fluid identif ied. BILIARY SYSTEM: Common bile duct measures 0.9 cm. This is unchanged compared to the prior examinatio ns.. No intrahepatic biliary ductal dilation. BUSTILLOS'S SIGN: Negative. RIGHT KIDNEY: Kidney is normal in size. No evidence of renal calculi. There is again seen prominence of the right renal pelvis. This is unchanged and likely reflects an extrarenal pelvis. This has a similar appearance compared to the CT scan from 09/11/2021. No renal mass or cyst identified. ASCITES: None seen. IMPRESSION: 1. Cholelithiasis. No finding sonographically to suggest acute cholecystitis. 2. Stable size of the common bile duct. No intrahepatic biliary ductal dilatation. 3. Findings were discussed with Jaun Kendall at 3:24 p.m. on 07/21/2022. DATA REPOSITORY:
--- NOTE | 2022-07-21 13:55 | ED.GENADUL_ITS ---
Discharge Plan Disposition Patient Disposition: Home Discharge Details Clinical Impression: Biliary colic Primary Care Provider: Silvia Muñoz ED Provider: Bronson Jung Home Meds and New Rx's Prescriptions: Continued pfohtefkqd-onfktgshbywzi-myfw [Esgic] 50-325-40 mg tablet 1 tab PO Q6H PRN Patient Comments: for headache MethylPro 15 mg PO DAILY Patient Comments: Mood (recommended by psychiatry) cefpodoxime 200 mg tablet 200 mg PO BID Qty: 10 0RF Rx Instructions: must administer with a meal/food for UTI clonazepam 0.5 mg tablet 0.25 - 0.5 mg PO QHS MDD 10, 0.5mg tabs per 28 days PRN (Reason: severe insomnia) Qty: 10 2RF Rx Instructions: Severe insomnia; use nonpharm measures first Mirena 20 mcg/24 hours (5 yrs) 52 mg intrauterine device 1 device IY ONCE gabapentin 600 mg tablet 600 - 900 mg PO QHS Qty: 145 1RF Rx Instructions: Hot flashes, night-time anxiety (dose increase 10/01/21) cholecalciferol (vitamin D3) 125 mcg (5,000 unit) capsule 125 mcg PO DAILY omega-3 fatty acids [Fish Oil Concentrate] 1,000 mg capsule 1,000 mg PO DAILY clonazepam 0.5 mg tablet 0.5 mg PO DAILY PRN (Reason: acute anxiety) Qty: 30 1RF bupropion HCl 300 mg tablet extended release 24 hr See Rx Instructions .ROUTE .COMPLEX Qty: 90 3RF Dose Instruction: TAKE 1 TABLET BY MOUTH EVERY MORNING FOR DEPRESSION Rx Instructions: TAKE 1 TABLET BY MOUTH EVERY MORNING FOR DEPRESSION pantoprazole 40 mg tablet,delayed release (DR/EC) See Rx Instructions .ROUTE .COMPLEX Qty: 30 0RF Dose Instruction: TAKE 1 TABLET BY MOUTH ONCE DAILY IN THE MORNING ON AN EMPTY STOMACH Rx Instructions: TAKE 1 TABLET BY MOUTH ONCE DAILY IN THE MORNING ON AN EMPTY STOMACH valacyclovir [Valtrex] 500 mg tablet 500 mg PO PRN PRN Rx Instructions: HSV suppression No Action bupropion HCl 150 mg tablet extended release 24 hr See Rx Instructions .ROUTE .COMPLEX Qty: 90 3RF Hold Instructions: Home Medication placed on hold at Doctor's office Dose Instruction: TAKE 1 TABLET BY MOUTH EVERY MORNING Rx Instructions: TAKE 1 TABLET BY MOUTH EVERY MORNING Discharge Instructions Additional Instructions: Please read all of the information that accompanies these instructions. You were seen in the emergency department for your abdominal pain. Your ultrasound showed no sign of a gallbladder infection. Please go the general surgery clinic on Wednesday, July 24 at 9 AM. Please return to the emergency department if if you develop nausea vomiting or any fevers. Please stick with a light diet to prevent worsening of your symptoms which are related likely to your gallbladder stone. Discharge Data Discharge Date/Time-TO BE ENTERED AT DEPARTURE: 07/21/22 16:22 Medical Decision Making Patient this is an overall very well-appearing normothermic and not tachycardic 52-year-old female with an elevated BMI and episodic right upper quadrant pain worsening for the past several weeks with subjective fevers concerning for acute cholecystitis. She does have what appears to be a stone in her neck on her limited right upper quadrant ultrasound with gallbladder wall thickening. Will obtain LFTs CBC and lipase. She is having no chest pain however will obtain a troponin and ECG. She denies routine ethanol. She has been nauseous but not vomiting. She has never had a diagnosed nephrolithiasis. She denies shortness of breath. Given her elevated BMI we will obtain a lipase to assess for pancreatitis. She does have some increased urinary frequency so we will obtain a urinalysis. She had no hydronephrosis to suggest ureterolithiasis. 3:30 PM I spoke to Dr. Vences from gen surgery who advised outpt follow with gen surg. She felt that the patient would be a good candidate for interval cholecystectomy electively. I advised patient of this plan and advised her to pursue a light diet avoiding fatty foods in the setting of her biliary colic. She had no LFT abnormalities noted leukocytosis. We will ensure that she can tolerate p.o. and plan for discharge with outpatient surgical follow-up. She was not altered to suggest ascending cholangitis. I have asked health unit secy to plan outpatient surgical follow-up. Patient has a follow-up appointment at 9 AM in the general surgery clinic. I have given her return indications and will pursue an expected trial of empiric outpatient management. Chronic conditions affecting the care of the patient: Obesity History obtained from an outside historian: Patient's . External record review: N/A Medications: None Social determinants of health affecting disposition: N/A Management discussed with: General surgery Treatment/interventions considered: N/A Response to therapies provided: N/A HPI General Date/Time Provider Initiated Documentation: 07/21/22 13:53 . HPI Narrative: This is a 52-year-old female with a history of cholelithiasis now in the emergency department in the setting of acute right upper quadrant pain after eating cereal this morning. Patient notes that she was diagnosed with cholelithiasis 5 or 6 years ago. She has had recurrent symptoms for the past 8 months that have worsened over the past 2 weeks. She has been nauseous but not vomiting. She had a subjective fever 2 days ago. She has a history of a hiatal hernia repair and 2010. She has never seen general surgery in the past. She denies any recent falls. She does note that she had an episode several years ago in which she was traveling in [place] and ate a fried meal. Subsequently she vomited when she was in [place] and she felt sick for the entire trip. Related Data Home Medications Medication Instructions Recorded Confirmed levonorgestrel 21 mcg/24 hours (8 1 device intrauterine ONCE 03/09/19 07/21/22 yrs) 52 mg intrauterine device (Mirena) cnubqxxtyc-asrpdppcovkjo-ejzalcre 1 tab PO Q6H PRN 03/21/19 07/21/22 50 mg-325 mg-40 mg tablet (Esgic) MethylPro 15 mg PO DAILY 02/18/21 07/21/22 cholecalciferol (vitamin D3) 125 125 mcg PO DAILY 03/18/21 07/21/22 mcg (5,000 unit) capsule clonazepam 0.5 mg tablet 0.5 mg PO DAILY PRN acute anxiety 05/16/21 07/21/22 #30 tabs omega-3 fatty acids 1,000 mg 1,000 mg PO DAILY 05/16/21 07/21/22 capsule (Fish Oil Concentrate) valacyclovir 500 mg tablet 500 mg PO PRN PRN 09/11/21 07/21/22 (Valtrex) gabapentin 600 mg tablet 600 - 900 mg PO QHS #145 tabs 10/01/21 07/21/22 cefpodoxime 200 mg tablet 200 mg PO BID #10 tabs 10/29/21 07/21/22 clonazepam 0.5 mg tablet 0.25 - 0.5 mg PO QHS PRN severe 10/30/21 07/21/22 insomnia #10 tabs bupropion HCl 300 mg 24 hr tablet, See Rx Instructions .Route 03/30/22 07/21/22 extended release .COMPLEX #90 tabs bupropion HCl 150 mg 24 hr tablet, See Rx Instructions .Route 04/20/22 07/21/22 extended release .COMPLEX #90 tabs pantoprazole 40 mg tablet,delayed See Rx Instructions .Route 05/29/22 07/21/22 release .COMPLEX #30 tabs Previous Rx's Medication Instructions Recorded clonazepam 0.5 mg tablet 0.5 mg PO DAILY PRN acute anxiety 05/16/21 #30 tabs gabapentin 600 mg tablet 600 - 900 mg PO QHS #145 tabs 10/01/21 cefpodoxime 200 mg tablet 200 mg PO BID #10 tabs 10/29/21 clonazepam 0.5 mg tablet 0.25 - 0.5 mg PO QHS PRN severe 10/30/21 insomnia #10 tabs bupropion HCl 300 mg 24 hr tablet, See Rx Instructions .Route 03/30/22 extended release .COMPLEX #90 tabs bupropion HCl 150 mg 24 hr tablet, See Rx Instructions .Route 04/20/22 extended release .COMPLEX #90 tabs pantoprazole 40 mg tablet,delayed See Rx Instructions .Route 05/29/22 release .COMPLEX #30 tabs Allergies Allergy/AdvReac Type Severity Reaction Status Date / Time Sulfa (Sulfonamide Allergy Verified 07/21/22 13:40 Antibiotics) General Stated Complaint: Abd Prob DRE: 3 PFSH All Active Problems (Updated 07/21/22 @ 15:37 by MARY ANN DELUCA) Biliary colic (Acute) Hot flashes due to menopause (Acute ~2020) Gabapentin Impaired fasting glucose (Chronic) Glucose 101 07/2019 Generalized anxiety disorder (Chronic) Sleeping difficulty (Chronic) CBD-Melatonin HSV (herpes simplex virus) infection (Chronic) Valtrex daily Headache (Chronic) Chronic intermittent; migraine Depression (Chronic) Wellbutrin Obesity (Chronic) Medical History ADD (attention deficit disorder) h/o Vyvanse (constipation) & Adderall use Cholelithiasis Common bile duct dilatation Cough with hemoptysis 09/25/19 Telehealth with [facility] [place] Pulomonlogy; self-limited & resolved; Pulm states no further work-up needed, unless reoccurs--then revisit pulm with CT- chest, bronch, labs, etc. (Klaudia Sanches MD at [facility] [place]) Granulomatous disease CT shows groundglass nodular opacities (with f/u resolved); [facility] Pulm Linden Mina MD Mediastinal adenopathy 09/25/19 Telehealth with [facility] Pulmonology, No further F/U since condition resolved; if recurs-->[facility] Pulm/Monica Mina Surgical History Gastric bypass status for obesity (~05/2009) [place], 2010 ([place]) H/O breast augmentation (~05/2002) 2002 History of appendectomy (~1985) 1985 Previous section (~2003) 2003 Tarsal tunnel syndrome (~2009) With repair 2009 ([place]) Family History Mother Anxiety Depression Hypertension Hyperlipidemia Diabetes T2 Father , From dementia with lewy body Anxiety Bladder cancer Depression Dementia Lewy body Social History Smoking/Tobacco Use Status: Never Smoking risk assessment performed?: Yes Alcohol Intake: current Alcohol Intake frequency: a few times a month Drug use: Occasionally Substance use type: marijuana Details: No IV Drug Use Adopted: No Household members: spouse Housing: house Communication Needs: None Do you need help understanding health information?: Never 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, [employer] Sexually active: Yes Do you think of yourself as: lesbian/tello/homosexual Current gender identity: female What type of physical activity do you participate in: walking Duration: 15-30 minutes/day Frequency: 1-2 times per week Seatbelt use: always Helmet use: Yes Working smoke detector in home: Yes Fire extinguisher in home: Yes Carbon monox detector in home: Yes Firearms in home: No Do you feel safe at home: Yes Do you feel safe in your relationship?: Yes History History 1 Para 1 Hx # Term Pregnancies Multiple births Hx # Pregnancies Ectopic pregnancies AB induced Hx Number of Living Children AB spontaneous Exam Narrative Exam Narrative: General: Well-appearing in no acute distress speaking in complete sentences. Head: Normocephalic, atraumatic Ear, nose, mouth, throat: Grossly normal inspection. Normal voice, handling secretions normally. Neck: Trachea midline. Cardiovascular: Well-perfused distal extremities. Respiratory: Nonlabored respiration. Gastrointestinal: Nondistended abdomen. Right upper quadrant tenderness. Negative Tripp sign. No rash to abdomen. No rebound or guarding. Musculoskeletal: No edema. Moving all 4 extremities spontaneously. Skin: Normal for age and race, grossly normal temperature and turgor. No acute rash. Neurologic: Alert and appropriate, no apparent acute deficits. Psychiatric: Mood and manner are appropriate. Grooming and personal hygiene are appropriate. Course Vital Signs Vital signs: Vital Signs Temperature 36.8 C 07/21/22 13:37 Pulse 74 07/21/22 13:37 Respiratory Rate 20 07/21/22 13:37 Blood Pressure 117/83 07/21/22 13:37 Pulse Oximetry 97 07/21/22 13:37 Temperature 36.8 C 07/21/22 13:37 Temperature Source Tympanic 07/21/22 13:37 Pulse 74 07/21/22 13:37 Respiratory Rate 20 07/21/22 13:37 Respiratory Effort Normal 07/21/22 13:39 Blood Pressure 117/83 07/21/22 13:37 Blood Pressure Position Sitting 07/21/22 13:37 Pulse Oximetry 97 07/21/22 13:37 Oxygen Delivery Method Room Air 07/21/22 13:37 Oxygen Flow Rate 0 07/21/22 13:37 Pain Level 8 07/21/22 13:37 POCUS Exam (ED) Limited Gallbladder Exam DATE OF EXAM: 07/21/22 TIME OF EXAM: 14:22 REASON FOR VISIT: RUQ pain VISUALIZED STRUCTURES: Gallbladder and Gallbladder wall PERTINENT FINDINGS/IMPRESSION: Gallstones, Thickened gallbladder wall and Other, (Stone in neck) Not consistent with acute cholecystitis Exam complete Limited Retroperitoneal(Renal)Exam DATE OF EXAM: 07/21/22 TIME OF EXAM: 15:37 REASON FOR EXAM: Flank pain/right side VISUALIZED STRUCTURES: Right kidney PERTINENT FINDINGS/IMPRESSION: no hydronephrosis present Exam complete PAWSS Have you Been Recently Intoxicated or Drunk Within the Last 30 days?: No Have you Ever Experienced Previous Episodes of Alcohol Withdrawal?: No Have you ever Experienced Withdrawal Seizures?: No Have you ever Experienced Delirium Tremens(DT)s?: No Have you ever undergone Alcohol Rehabilitation Treatment (i.e, inpt ot outpatient treatment programs)?: No Have you ever Experienced Blackouts?: No Have you ever Combined Alcohol with other Downers within the last 90 days?: No Have you ever Combined Alcohol with any other Substance of Abuse during the last 90 days?: No Result: 0
[2022-07-21] MEDS: Normal Saline 1,000 ML 1000 ML IV (14:21)
[2022-07-21] MEDS: Ondansetron 4 MG/2 ML VIAL IVP (14:21)
[2022-07-21 14:23] LABS: Abs Immature Grans 0.03 10^3/uL (0.0-0.06); Absolute Basophil Count 0.02 10^3/uL (0.0-0.2); Absolute Eosinophil Count 0.09 10^3/uL (0.0-0.7); Absolute Monocyte Count 0.39 10^3/uL (0.1-0.8); Absolute Neutrophil Count 4.95 10^3/uL (1.2-6.7); Basophils % 0.3; Eosinophils % 1.3; HCT 41.2 % (36.0-46.0); HGB 13.5 g/dL (11.2-15.7); Immature Grans % 0.4; Lymphocytes % 20.3; MCHC 32.8 % (32.0-36.0); MCV 95 fL (80-95); MPV 10.6 fL (8.0-11.0); Monocytes % 5.7; Platelet Count 305 10^3/uL (130-400); RBC 4.36 10^6/uL (3.93-5.22); RDW 11.9 % (11.7-14.6); RDW-SD 42.2 fL; WBC 6.88 10^3/uL (4.4-10.8)
[2022-07-21 14:41] LABS: ALT 29 U/L (14-59); AST 14 U/L (15-37); Albumin 4.2 g/dL (3.4-5.0); Alkaline Phosphatase 93 U/L (46-116); Anion Gap 8.8 mmol/L (3-11); BUN 16 mg/dL (7-18); Bilirubin, Total 0.4 mg/dL (0.2-1.0); CO2 27.2 mmol/L (21.0-32.0); Calcium 9.3 mg/dL (8.5-10.1); Chloride 107 mmol/L (98-107); Estimated GFR 66.95 (mL/min/1.73m2); Glucose 99 mg/dL (74-106); Lipase 50 U/L (16-77); Potassium 3.9 mmol/L (3.5-5.1); Sodium 143 mmol/L (136-145); Total Protein 7.4 g/dL (6.4-8.2); Troponin I < 50 ng/L (<or=60)
--- NOTE | 2022-07-21 15:39 | NUR.NOTE ---
Appt. WednesdayJuly 24 @ 9am. Fitting pt in so may have to wait. To see Dr. Germain. Nursing Note:
[2022-07-21 17:47] LABS: Bilirubin Negative (Negative); Blood Negative (Negative); Clarity Clear (Clear); Glucose Negative (Negative); Ketones Negative (Negative); Leukocyte Esterase Negative (Negative); Nitrite Negative (Negative); Specific Gravity 1.015 (1.005-1.025); Urobilinogen 0.2 mg/dL (Up to 0.2)
== END 2022-07-21 16:22 | disposition home or self-care (01) ==
PROVIDERS: Emergency Provider Emergency Medicine; PCP Nurse Practitioner Adult Health
DX: K80.50 Calculus of bile duct without cholangitis or cholecystitis without obstruction (principal); R35.0 Frequency of micturition; E66.9 Obesity, unspecified
CPT/HCPCS: 76705; 76775; 80053; 83690; 93005; 96361; 96374; 99284; 81003; 83735; 84484; 85025; 93010; J2405

== ENCOUNTER 2022-07-24 08:53 | Emergency (ER) | payer BC, SELFPAY ==
[2022-07-24 09:01] VITALS: BP 123/89; PULSE 106; RESP 18; TEMP 36.6; O2SAT 97
[2022-07-24 09:45] LABS: Abs Immature Grans 0.01 10^3/uL (0.0-0.06); Absolute Basophil Count 0.02 10^3/uL (0.0-0.2); Absolute Eosinophil Count 0.11 10^3/uL (0.0-0.7); Absolute Monocyte Count 0.57 10^3/uL (0.1-0.8); Absolute Neutrophil Count 1.86 10^3/uL (1.2-6.7); Basophils % 0.5; Eosinophils % 2.7; HCT 43.4 % (36.0-46.0); HGB 14.3 g/dL (11.2-15.7); Immature Grans % 0.2; Lymphocytes % 36.9; MCH 31.1 pg (27.0-33.0); MCHC 32.9 % (32.0-36.0); MCV 94 fL (80-95); MPV 10.7 fL (8.0-11.0); Neutrophils % 45.7; Platelet Count 267 10^3/uL (130-400); RDW 11.9 % (11.7-14.6); RDW-SD 41.2 fL; WBC 4.06 10^3/uL (4.4-10.8)
[2022-07-24 10:01] LABS: ALT 25 U/L (14-59); AST 15 U/L (15-37); Alkaline Phosphatase 97 U/L (46-116); BUN 13 mg/dL (7-18); Bilirubin, Total 0.2 mg/dL (0.2-1.0); CREATININE 1.1 mg/dL (0.55-1.02); Calcium 9.1 mg/dL (8.5-10.1); Chloride 105 mmol/L (98-107); Estimated GFR 59.71 (mL/min/1.73m2); Glucose 84 mg/dL (74-106); Lipase 35 U/L (16-77); Potassium 4.1 mmol/L (3.5-5.1); Sodium 140 mmol/L (136-145); Total Protein 7.2 g/dL (6.4-8.2)
[2022-07-24] MEDS: Normal Saline 1,000 ML 1000 ML IV (10:15)
[2022-07-24] MEDS: Ondansetron 4 MG/2 ML VIAL IVP (10:15)
[2022-07-24] MEDS: HYDROmorphone 2 MG/ML SYR 1 MG IVP (10:15)
[2022-07-24 10:17] VITALS: BP 131/81; PULSE 74; RESP 18; O2SAT 96
--- NOTE | 2022-07-24 10:31 | ED.GENADUL_ITS ---
Discharge Plan Disposition Patient Disposition: Home Condition: Improving Discharge Details Clinical Impression: Biliary colic, COVID Primary Care Provider: Silvia Muñoz ED Provider: Miah Barros Home Meds and New Rx's Prescriptions: New oxycodone-acetaminophen [Percocet] 5-325 mg tablet 1 tab PO Q8H PRNQty: 8 0RF ondansetron 4 mg tablet,disintegrating 4 mg PO TID PRN3 Days Qty: 9 0RF Continued xdffwkwagt-llytizkmuuvum-dpif [Esgic] 50-325-40 mg tablet 1 tab PO Q6H PRN Patient Comments: for headache MethylPro 15 mg PO DAILY Patient Comments: Mood (recommended by psychiatry) cefpodoxime 200 mg tablet 200 mg PO BID Qty: 10 0RF Rx Instructions: must administer with a meal/food for UTI clonazepam 0.5 mg tablet 0.25 - 0.5 mg PO QHS MDD 10, 0.5mg tabs per 28 days PRN (Reason: severe insomnia) Qty: 10 2RF Rx Instructions: Severe insomnia; use nonpharm measures first Mirena 20 mcg/24 hours (5 yrs) 52 mg intrauterine device 1 device IY ONCE gabapentin 600 mg tablet 600 - 900 mg PO QHS Qty: 145 1RF Rx Instructions: Hot flashes, night-time anxiety (dose increase 10/01/21) cholecalciferol (vitamin D3) 125 mcg (5,000 unit) capsule 125 mcg PO DAILY omega-3 fatty acids [Fish Oil Concentrate] 1,000 mg capsule 1,000 mg PO DAILY clonazepam 0.5 mg tablet 0.5 mg PO DAILY PRN (Reason: acute anxiety) Qty: 30 1RF bupropion HCl 300 mg tablet extended release 24 hr See Rx Instructions .ROUTE .COMPLEX Qty: 90 3RF Dose Instruction: TAKE 1 TABLET BY MOUTH EVERY MORNING FOR DEPRESSION Rx Instructions: TAKE 1 TABLET BY MOUTH EVERY MORNING FOR DEPRESSION bupropion HCl 150 mg tablet extended release 24 hr See Rx Instructions .ROUTE .COMPLEX Qty: 90 3RF Hold Instructions: Home Medication placed on hold at Doctor's office Dose Instruction: TAKE 1 TABLET BY MOUTH EVERY MORNING Rx Instructions: TAKE 1 TABLET BY MOUTH EVERY MORNING pantoprazole 40 mg tablet,delayed release (DR/EC) See Rx Instructions .ROUTE .COMPLEX Qty: 30 0RF Dose Instruction: TAKE 1 TABLET BY MOUTH ONCE DAILY IN THE MORNING ON AN EMPTY STOMACH Rx Instructions: TAKE 1 TABLET BY MOUTH ONCE DAILY IN THE MORNING ON AN EMPTY STOMACH valacyclovir [Valtrex] 500 mg tablet 500 mg PO PRN PRN Rx Instructions: HSV suppression Discharge Instructions Instructions: Biliary Colic (ED), COVID-19 (Coronavirus Disease 2019) (ED) Additional Instructions: Your laboratory values today do not reveal any elevated white count or abnormal gallbladder, liver, pancreatic enzymes. Unfortunately you did test positive for COVID, you would not like to initiate Paxlovid at this time. I did discuss your ER visit and presentation with surgery, Dr. Germain. Unfortunately because you tested positive for COVID today you will need to wait a minimum of 2 weeks or until you are completely asymptomatic from a COVID standpoint before you can have your gallbladder removed. I have provided you with a prescription for Zofran and Percocet, take as directed, Percocet may cause drowsiness and/or constipation, you may want to take an fsvp-rgf-qphqvac stool softener while taking this medication. Please watch for new or worsening symptoms and return to the ER for any concerns. Dietary restrictions for your gallbladder as we discussed. Please contact our surgical team to set up an outpatient appointment whether this be 2 weeks or once you are asymptomatic. Referrals: Shivani Germain, [OSTEOPATHIC DOCTOR] - Medical Decision Making 52-year-old female with known cholelithiasis, seen in the ER 3 days ago, presents to the ER now for ongoing right upper quadrant pain, hoping to have her gallbladder removed today, she did have an outpatient appointment at 9 AM with surgery but came to the ER as symptoms were worsening. She reports URI-like symptoms earlier in the week which seem better, also her skin feels like it is on fire. Clinically she has right upper quadrant pain but appears well, nontoxic, afebrile. I was able to review the most recent ultrasound from her recent visit. Plan to obtain IV access, obtain routine screening laboratory values, will obtain flu, COVID, RSV as she had URI-like symptoms earlier in the week and could be surgical candidate in the near future. We will give IV Dilaudid and Zofran as well as fluid. CBC, CMP, lipase all unremarkable for any obvious emergent process. Patient reports significant improvement of her symptoms with IV Dilaudid and Zofran. COVID positive. Patient is fully vaccinated and does not want to initiate Paxlovid. I have requested a surgical consultation as the patient was supposed to be seen in the surgical clinic today. Given her benign laboratory values, would not reflexively repeat ultrasound or CT imaging. Case discussed with surgery, Dr. Germain. She reviewed the laboratory values today and is aware that we did not repeat imaging today. Patient has no fever, no evidence of leukocytosis. Is COVID-positive and because of this will need to wait at least 2 weeks or until she is completely asymptomatic from a COVID standpoint before surgery can be performed. Standard discharge and return precautions were provided. Patient understands, is agreeable to this plan, and has no additional questions or concerns upon discharge. This documentation was generated using [employer] system, please disregard any oddities of phrase or misspellings. Medical Records Medical records reviewed: Yes I reviewed the patient's medical records. Lab Data Lab results reviewed: Yes I reviewed the patient's lab results. Labs: Laboratory Tests Range/Units 07/24/22 07/24/22 07/24/22 09:15 09:37 09:37 WBC (4.4-10.8) 10^3/uL 4.06 L RBC (3.93-5.22) 10^6/uL 4.60 Hgb (11.2-15.7) g/dL 14.3 Hct (36.0-46.0) % 43.4 MCV (80-95) fL 94 MCH (27.0-33.0) pg 31.1 MCHC (32.0-36.0) % 32.9 RDW (11.7-14.6) % 11.9 Plt Count (130-400) 10^3/uL 267 MPV (8.0-11.0) fL 10.7 Immature Gran % 0.2 Neutrophils % 45.7 Lymphocytes % 36.9 Monocytes % 14.0 Eosinophils % 2.7 Basophils % 0.5 Nucleated RBC % (0.0-0.3) % 0.0 Absolute Neutrophils (1.2-6.7) 10^3/uL 1.86 Absolute Lymphocytes (1.2-3.4) 10^3/uL 1.50 Absolute Monocytes (0.1-0.8) 10^3/uL 0.57 Absolute Eosinophils (0.0-0.7) 10^3/uL 0.11 Absolute Basophils (0.0-0.2) 10^3/uL 0.02 Sodium (136-145) mmol/L 140 Potassium (3.5-5.1) mmol/L 4.1 Chloride (98-107) mmol/L 105 Carbon Dioxide (21.0-32.0) mmol/L 26.0 Anion Gap (3-11) mmol/L 9.0 BUN (7-18) mg/dL 13 Creatinine (0.55-1.02) mg/dL 1.1 H Est GFR (CKD-EPI 2020) (mL/min/1.73m2) 59.71 Glucose (74-106) mg/dL 84 Calcium (8.5-10.1) mg/dL 9.1 Total Bilirubin (0.2-1.0) mg/dL 0.2 AST (15-37) U/L 15 ALT (14-59) U/L 25 Alkaline Phosphatase (46-116) U/L 97 Total Protein (6.4-8.2) g/dL 7.2 Albumin (3.4-5.0) g/dL 4.0 Lipase (16-77) U/L 35 COVID-19 Source Nasopharynx SARS-CoV-2 (PCR) (Negative) Positive A Influenza Type A (PCR) (Negative) Negative Influenza Type B (PCR) (Negative) Negative RSV (PCR) (Negative) Negative HPI General Mode of arrival: ambulatory . Date/Time Provider Initiated Documentation: 07/24/22 08:56 . Limitations to Documentation: no limitations . Information obtained by: patient and family . HPI Narrative: This is a 52-year-old female with a past medical history of anxiety, depression, ADD has been diagnosed with cholelithiasis and common bile duct dilatation, most recently seen in the ER 3 days ago for the same, had an appointment as an outpatient today with our surgical team but felt as though her pain was too severe and worsening over the past few days and came to the ER instead. Reports decreased appetite. She denies fever, chest pain, shortness of breath, nausea, vomiting, diarrhea or constipation. Patient is hopeful that her gallbladder will be removed today as she does not want to wait. She was not provided with any antiemetic or analgesia to be discharged home with her during her last visit. Related Data Home Medications Medication Instructions Recorded Confirmed levonorgestrel 21 mcg/24 hours (8 1 device intrauterine ONCE 03/09/19 07/21/22 yrs) 52 mg intrauterine device (Mirena) mvznzkcabh-gqhdpfmgpcowz-wzulyewt 1 tab PO Q6H PRN 03/21/19 07/21/22 50 mg-325 mg-40 mg tablet (Esgic) MethylPro 15 mg PO DAILY 02/18/21 07/21/22 cholecalciferol (vitamin D3) 125 125 mcg PO DAILY 03/18/21 07/21/22 mcg (5,000 unit) capsule clonazepam 0.5 mg tablet 0.5 mg PO DAILY PRN acute anxiety 05/16/21 07/21/22 #30 tabs omega-3 fatty acids 1,000 mg 1,000 mg PO DAILY 05/16/21 07/21/22 capsule (Fish Oil Concentrate) valacyclovir 500 mg tablet 500 mg PO PRN PRN 09/11/21 07/21/22 (Valtrex) gabapentin 600 mg tablet 600 - 900 mg PO QHS #145 tabs 10/01/21 07/21/22 cefpodoxime 200 mg tablet 200 mg PO BID #10 tabs 10/29/21 07/21/22 clonazepam 0.5 mg tablet 0.25 - 0.5 mg PO QHS PRN severe 10/30/21 07/21/22 insomnia #10 tabs bupropion HCl 300 mg 24 hr tablet, See Rx Instructions .Route 03/30/22 07/21/22 extended release .COMPLEX #90 tabs bupropion HCl 150 mg 24 hr tablet, See Rx Instructions .Route 04/20/22 07/21/22 extended release .COMPLEX #90 tabs pantoprazole 40 mg tablet,delayed See Rx Instructions .Route 05/29/22 07/21/22 release .COMPLEX #30 tabs ondansetron 4 mg disintegrating 4 mg PO TID PRN 3 days #9 tabs 07/24/22 tablet oxycodone-acetaminophen 5 mg-325 1 tab PO Q8H PRN #8 tabs 07/24/22 mg tablet (Percocet) Previous Rx's Medication Instructions Recorded clonazepam 0.5 mg tablet 0.5 mg PO DAILY PRN acute anxiety 05/16/21 #30 tabs gabapentin 600 mg tablet 600 - 900 mg PO QHS #145 tabs 10/01/21 cefpodoxime 200 mg tablet 200 mg PO BID #10 tabs 10/29/21 clonazepam 0.5 mg tablet 0.25 - 0.5 mg PO QHS PRN severe 10/30/21 insomnia #10 tabs bupropion HCl 300 mg 24 hr tablet, See Rx Instructions .Route 03/30/22 extended release .COMPLEX #90 tabs bupropion HCl 150 mg 24 hr tablet, See Rx Instructions .Route 04/20/22 extended release .COMPLEX #90 tabs pantoprazole 40 mg tablet,delayed See Rx Instructions .Route 05/29/22 release .COMPLEX #30 tabs ondansetron 4 mg disintegrating 4 mg PO TID PRN 3 days #9 tabs 07/24/22 tablet oxycodone-acetaminophen 5 mg-325 1 tab PO Q8H PRN #8 tabs 07/24/22 mg tablet (Percocet) Allergies Allergy/AdvReac Type Severity Reaction Status Date / Time Sulfa (Sulfonamide Allergy rash on Verified 07/24/22 09:16 Antibiotics) trunk morphine AdvReac Nausea Unverified 07/24/22 09:05 General Stated Complaint: Abd Prob DRE: 3 Review of Systems Constitutional Constitutional: Denies fever(s) and Denies weakness Cardiovascular Cardiovascular: Denies chest pain and Denies dyspnea Respiratory Respiratory: Denies cough and Denies dyspnea Gastrointestinal Gastrointestinal: Reports abdominal pain, Denies constipation, Denies diarrhea, Denies nausea and Denies vomiting Genitourinary Genitourinary: Denies dysuria Musculoskeletal Musculoskeletal: Reports back pain (Pain radiates to the back) Integumentary/Breasts Skin/Breast: Denies rash Neurologic Neurologic: Denies weakness PFSH All Active Problems (Updated 07/24/22 @ 11:41 by DENNIS Reeves) Biliary colic (Acute) COVID (Acute) Hot flashes due to menopause (Acute ~2020) Gabapentin Impaired fasting glucose (Chronic) Glucose 101 07/2019 Generalized anxiety disorder (Chronic) Sleeping difficulty (Chronic) CBD-Melatonin HSV (herpes simplex virus) infection (Chronic) Valtrex daily Headache (Chronic) Chronic intermittent; migraine Depression (Chronic) Wellbutrin Obesity (Chronic) Medical History ADD (attention deficit disorder) h/o Vyvanse (constipation) & Adderall use Cholelithiasis Common bile duct dilatation Cough with hemoptysis 09/25/19 Telehealth with [facility] [place] Pulomonlogy; self-limited & resolved; Pulm states no further work-up needed, unless reoccurs--then revisit pulm with CT- chest, bronch, labs, etc. (Klaudia Sanches MD at [facility] [place]) Granulomatous disease CT shows groundglass nodular opacities (with f/u resolved); [facility] [place] Pulm Linden Mina MD Mediastinal adenopathy 09/25/19 Telehealth with [facility] [place] Pulmonology, No further F/U since condition resolved; if recurs-->[facility] [place] Pulm/Monica Mina Surgical History Gastric bypass status for obesity (~05/2009) [place] H/O breast augmentation (~05/2002) 2002 History of appendectomy (~1985) 1986 Previous section (~2003) 2003 Tarsal tunnel syndrome (~2009) [place] repair 2009 ([place]) Family History Mother Anxiety Depression Hypertension Hyperlipidemia Diabetes T2 Father , From dementia with lewy body Anxiety Bladder cancer Depression Dementia Lewy body Social History Smoking/Tobacco Use Status: Never Smoking risk assessment performed?: Yes Alcohol Intake: current Alcohol Intake frequency: a few times a month Drug use: Occasionally Substance use type: marijuana Details: No IV Drug Use Adopted: No Household members: spouse Housing: house Communication Needs: None Do you need help understanding health information?: Never 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, [employer] Sexually active: Yes Do you think of yourself as: lesbian/tello/homosexual Current gender identity: female What type of physical activity do you participate in: walking Duration: 15-30 minutes/day Frequency: 1-2 times per week Seatbelt use: always Helmet use: Yes Working smoke detector in home: Yes Fire extinguisher in home: Yes Carbon monox detector in home: Yes Firearms in home: No Do you feel safe at home: Yes Do you feel safe in your relationship?: Yes History History 1 Para 1 Hx # Term Pregnancies Multiple births Hx # Pregnancies Ectopic pregnancies AB induced Hx Number of Living Children AB spontaneous Exam Const General: cooperative, healthy appearing, comfortable and no acute distress Orientation: alert and awake HENMT Head: normal to inspection, normocephalic and atraumatic Face and sinus: normal facial exam Mouth: moist mucous membranes Eyes Conjunctivae: conjunctivae normal Neck Neck: normal visual inspection, full ROM, no meningeal signs, trachea midline and supple Resp Effort & Inspection: normal respiratory effort and able to speak in complete sentences Auscultation: clear to auscultation bilaterally Cardio Rate: regular rate Rhythm: regular rhythm GI Inspection: normal to inspection Palpation: soft, not firm, no guarding, no pulsatile masses and tender in the RUQ; not at McBurney's point, Tripp's sign negative and with no rebound tenderness Auscultation: normal bowel sounds Back/Spine/Pelvis Back: no CVA tenderness and No back tenderness Skin General skin exam: no rashes or lesions noted Neuro General: patient alert, patient awake, moves all extremities and no focal motor deficits Cognition: normal cognition Speech: speech normal Gait: normal gait Sensory Exam: no sensory deficits noted Psych Appearance: grossly normal Mental Status: mental status grossly normal Course Vital Signs Vital signs: Vital Signs Temperature 36.6 C 07/24/22 09:01 Pulse 106 H 07/24/22 09:01 Respiratory Rate 18 07/24/22 09:01 Blood Pressure 123/89 07/24/22 09:01 Pulse Oximetry 97 07/24/22 09:01 Temperature 36.6 C 07/24/22 09:01 Temperature Source Oral 07/24/22 09:01 Pulse 74 07/24/22 10:17 Respiratory Rate 18 07/24/22 10:17 Respiratory Effort Normal 07/24/22 10:22 Blood Pressure 131/81 07/24/22 10:17 Blood Pressure Position Sitting 07/24/22 09:01 Pulse Oximetry 96 07/24/22 10:17 Oxygen Delivery Method Room Air 07/24/22 10:17 Oxygen Flow Rate 0 07/24/22 10:17 Pain Level 8 07/24/22 10:15 Lab/Test Results Lab/Test Results: Laboratory Tests Range/Units 07/24/22 07/24/22 09:37 09:37 WBC (4.4-10.8) 10^3/uL 4.06 L RBC (3.93-5.22) 10^6/uL 4.60 Hgb (11.2-15.7) g/dL 14.3 Hct (36.0-46.0) % 43.4 MCV (80-95) fL 94 MCH (27.0-33.0) pg 31.1 MCHC (32.0-36.0) % 32.9 RDW (11.7-14.6) % 11.9 Plt Count (130-400) 10^3/uL 267 MPV (8.0-11.0) fL 10.7 Immature Gran % 0.2 Neutrophils % 45.7 Lymphocytes % 36.9 Monocytes % 14.0 Eosinophils % 2.7 Basophils % 0.5 Nucleated RBC % (0.0-0.3) % 0.0 Absolute Neutrophils (1.2-6.7) 10^3/uL 1.86 Absolute Lymphocytes (1.2-3.4) 10^3/uL 1.50 Absolute Monocytes (0.1-0.8) 10^3/uL 0.57 Absolute Eosinophils (0.0-0.7) 10^3/uL 0.11 Absolute Basophils (0.0-0.2) 10^3/uL 0.02 Sodium (136-145) mmol/L 140 Potassium (3.5-5.1) mmol/L 4.1 Chloride (98-107) mmol/L 105 Carbon Dioxide (21.0-32.0) mmol/L 26.0 Anion Gap (3-11) mmol/L 9.0 BUN (7-18) mg/dL 13 Creatinine (0.55-1.02) mg/dL 1.1 H Est GFR (CKD-EPI 2020) (mL/min/1.73m2) 59.71 Glucose (74-106) mg/dL 84 Calcium (8.5-10.1) mg/dL 9.1 Total Bilirubin (0.2-1.0) mg/dL 0.2 AST (15-37) U/L 15 ALT (14-59) U/L 25 Alkaline Phosphatase (46-116) U/L 97 Total Protein (6.4-8.2) g/dL 7.2 Albumin (3.4-5.0) g/dL 4.0 Lipase (16-77) U/L 35
--- NOTE | 2022-07-24 10:32 | NUR.NOTE ---
Nursing Note: Pt reports pain and nausea relieved at this time, states wow, its amazing that my pain is gone pt resting w/eyes closed on stretcher at this time, cont. to monitor.
[2022-07-24 10:45] LABS: Influenza A PCR Negative (Negative); Influenza B PCR Negative (Negative); RSV PCR Negative (Negative)
[2022-07-24 10:47] LABS: Source Nasopharynx
[2022-07-24 10:49] LABS: COVID-19 PCR Positive (Negative)
[2022-07-24 11:14] VITALS: BP 113/62; PULSE 78; RESP 18; O2SAT 99
[2022-07-24 11:56] LABS: Bilirubin Negative (Negative); Blood Small (Negative); Clarity Clear (Clear); Glucose Negative (Negative); Ketones 15 mg/dL (Negative); Leukocyte Esterase Small (Negative); Nitrite Positive (Negative); Specific Gravity 1.015 (1.005-1.025); Urobilinogen 0.2 mg/dL (Up to 0.2)
[2022-07-24 12:05] LABS: Bacteria Moderate HPF (Negative); C & S Indicated? Yes; Casts Negative LPF (Negative); Crystals Negative HPF (Negative); Epithelial Cells Few HPF (Negative); Mucus Negative (Negative); RBC 0-2 HPF (0-2)
[2022-07-24 12:24] VITALS: BP 131/79; PULSE 72; RESP 18; TEMP 36.9; O2SAT 99
== END 2022-07-24 17:56 | disposition home or self-care (01) ==
PROVIDERS: Emergency Provider Physician Assistant; PCP Nurse Practitioner Adult Health
DX: K80.50 Calculus of bile duct without cholangitis or cholecystitis without obstruction (principal); U07.1 COVID-19
CPT/HCPCS: 36415; 80053; 81025; 83690; 87077; 87186; 87637; 96361; 96374; 96375; 99284; 81003; 81015; 85025; 87086; J1170; J2405

== ENCOUNTER 2023-04-13 15:54 | Outpatient (REF) | payer OTHER, SELFPAY | END 2023-04-13 15:55 | disposition home or self-care (01) | LOC: LBN 15:54 | PROVIDERS: PCP Nurse Practitioner Adult Health; Visit Provider Family Medicine | DX: R31.9 Hematuria, unspecified (principal); M54.89 Other dorsalgia | CPT/HCPCS: 87086 ==

== ENCOUNTER 2023-10-18 11:57 | Day surgery (SDC) | payer BC, SELFPAY ==
[2023-10-18 12:31] VITALS: BP 119/74; PULSE 64; RESP 14; TEMP 36.7; O2SAT 98
[2023-10-18] MEDS: Lactated Ringers 1,000 ML 80 ML IV (12:41)
--- NOTE | 2023-10-18 12:47 | ANES.PREOP_ITS ---
General Info Date of Service Date Performed: 10/18/23 Height: 5 ft 6 in Weight: 71.7 kg Body Mass Index (BMI): 25.4 Surgical Procedure: Operation Date: 10/18/23 12:35 Proposed Procedure Side Surgeon p Gastroscopy Heron Smith MD Meds Allergies and Home Medications Allergies Allergy/AdvReac Type Severity Reaction Status Date / Time Sulfa (Sulfonamide Allergy rash on Verified 10/18/23 12:30 Antibiotics) trunk methocarbamol AdvReac Nausea Verified 10/18/23 12:30 morphine AdvReac Nausea Verified 10/18/23 12:30 Home Medication Medication Instructions Recorded levonorgestrel 21 mcg/24 hr (up to 1 device intrauterine ONCE 03/09/19 8 years) 52 mg intrauterine device (Mirena) ftxvizmweg-uclpheleexbja-bhkqzhqf 1 tab PO Q6H PRN 03/21/19 50 mg-325 mg-40 mg tablet (Esgic) MethylPro 15 mg PO DAILY 02/18/21 cholecalciferol (vitamin D3) 125 125 mcg PO DAILY 03/18/21 mcg (5,000 unit) capsule clonazepam 0.5 mg tablet 0.5 mg PO DAILY PRN acute anxiety 05/16/21 #30 tabs omega-3 fatty acids 1,000 mg 1,000 mg PO DAILY 05/16/21 capsule (Fish Oil Concentrate) bupropion HCl 300 mg 24 hr tablet, See Rx Instructions .Route 01/21/23 extended release .COMPLEX #90 tabs ibuprofen 600 mg tablet 600 mg PO TID PRN pain #60 tabs 01/21/23 magnesium 200 mg tablet 400 mg PO DAILY 04/13/23 gabapentin 600 mg tablet See Rx Instructions .Route 06/07/23 .COMPLEX #145 tabs ondansetron 4 mg disintegrating 4 mg PO Q8H PRN nausea and 07/12/23 tablet vomiting #20 tabs pantoprazole 40 mg tablet,delayed See Rx Instructions .Route 08/04/23 release .COMPLEX #90 tabs bupropion HCl 150 mg 24 hr tablet, 150 mg PO QAM #90 tabs 08/09/23 extended release valacyclovir 500 mg tablet 500 mg PO DAILY #90 tabs 09/10/23 (Valtrex) Current Visit Medications: Current Medications Generic Name Dose Route Start Last Admin Trade Name Freq PRN Reason Stop Dose Admin Ringer's Solution 1,000 mls @ 80 mls/hr 10/18/23 06:00 10/18/23 12:41 IV 10/18/23 23:59 80 mls/hr INFUSION DESIREE Administration IV Miscellaneous Supplies 1 each 10/18/23 06:00 Iv Access IV 10/18/23 23:59 DIRECTED DESIREE Sodium Chloride 0 ml 10/18/23 06:00 Normal Saline Flush 10 Ml Syr IV 10/18/23 23:59 PRN PRN Sodium Chloride 0 ml 10/18/23 06:00 Normal Saline 10 Ml Vial IJ 10/18/23 23:59 DIRECTED PRN Sterile Water 0 ml 10/18/23 06:00 Water,Injection,Sterile 10 Ml Vial IJ 10/18/23 23:59 DIRECTED PRN PFSH Active Problems Active Problems: Problem Status Onset Code Shoulder arthritis M19.019 GERD (gastroesophageal reflux disease) K21.9 Nausea and vomiting ~12/2022 R11.2 Hot flashes due to menopause ~2020 N95.1 Impaired fasting glucose R73.01 Generalized anxiety disorder F41.1 Sleeping difficulty G47.9 HSV (herpes simplex virus) infection B00.9 Headache R51 Depression F32.9 Obesity E66.9 Medical History Medical History COVID Cholelithiasis Common bile duct dilatation Cough with hemoptysis 09/25/19 Telehealth with [facility] [place] Pulomonlogy; self-limited & resolved; Pulm states no further work-up needed, unless reoccurs--then revisit pulm with CT- chest, bronch, labs, etc. (Klaudia Sanches MD at [facility] [place]) Mediastinal adenopathy 09/25/19 Telehealth with [facility] Pulmonology, No further F/U since condition resolved; if recurs-->[facility] Pulm/Monica Mina Granulomatous disease CT shows groundglass nodular opacities (with f/u resolved); [facility] Pulagatha Mina MD ADD (attention deficit disorder) h/o Vyvanse (constipation) & Adderall use Surgical History Surgical History History of cholecystectomy (~07/2022) [place] Tarsal [place] (~2009) [place] 2010 ([place]) Previous section (~2003) 2003 H/O breast augmentation (~05/2002) 2002 History of appendectomy (~1985) 1985 Gastric bypass status for obesity (~05/2009) [place]leeve, 2010 ([place]) Tobacco Smoking/Tobacco Use Status: Never Passive smoking exposure: No Alcohol Alcohol Intake: current Alcohol intake frequency: a few times a month Substance Use Substance use: Occasionally Substance use type: marijuana Details: No IV Drug Use Prental History History 1 Para 1 Hx # Term Pregnancies Multiple births Hx # Pregnancies Ectopic pregnancies AB induced Hx Number of Living Children AB spontaneous Vital Signs and Lab Results Vital Signs Most Recent Vital Signs in EMR: Most Recent Vital Signs Temp Pulse Resp BP Pulse Ox 36.7 C 64 14 119/74 98 10/18/23 12:31 10/18/23 12:31 10/18/23 12:31 10/18/23 12:31 10/18/23 12:31 Lab Results Blood Type / Crossmatch: No Data to Display Complete Blood Count: No Data to Display Complete Metabolic Panel: No Data to Display Liver Function Panel: No Data to Display Coagulation Panel: No Data to Display Cardiac Panel: No Data to Display Arterial Blood Gas: No Data to Display Venous Blood Gas: No Data to Display Pancreas Panel: No Data to Display Thyroid Panel: No Data to Display Infectious Disease: No Data to Display Blood Cultures: No Data to Display Toxicology Panel: No Data to Display Anesthesia Assessment and Plan Anesthesia History Personal History: PONV Family History: No Family History of Anesthesia Complications Exercise Tolerance Exercise Tolerance: Metabolic Equivalents>4 Pertinent Negatives Pertinent Negatives: No Symptoms of GERD, No Major Cardiovascular Symptoms or Complaints and No Major Pulmonary Symptoms or Complaints Cardiac & Pulmonary Exam Cardiac Exam: Normal S1/S2 Heart Sounds Pulmonary Exam: Clear Bilateral Breath Sounds Implantable Cardiac Device Does patient have a Pacemaker or an ICD?: No Airway Exam Known Difficult Airway: No Mallampati Class: 1 Mouth Opening: Normal (> 3cm) Thyromental Distance: Greater than 3 cm Neck Range of Motion: Full ROM Neck Circumference: Normal Teeth Condition: Normal Dentition ASA Classification ASA Score: ASA 2 Emergency Case?: No NPO Status NPO Status: NPO Clears >2 hours, Solids >8 hours Anesthesia Plan Resuscitation Status: Full Code Anesthesia Technique: General Anesthesia Airway Planned: Natural Airway Monitors Used: Standard Monitors
[2023-10-18 12:48] VITALS: BMI 25.4
--- NOTE | 2023-10-18 13:17 | STOM_PTH ---
PATIENT: Nora Bowman LOC: [facility] U#:[id number] AGE/SX: 53/F ROOM: RE10/18/[address]: Heron Smith : 1970 BED: DIS: 10/18/2023 SPEC #: [id number] RECD: 10/18/23 18:03 STATUS: [facility] #: [id number] CRISTY: 10/18/23 13:[address]: Heron Smith DEPT: Surgical Specimen RECD BY: Diana Zaidi ENTERED: 10/18/23 18:04 SP TYPE: STOMACH OTHR DR: Silvia Muñoz APRN Tissues: 1 - BIOPSY BOWEL 2 - STOMACH BIOPSY 3 - STOMACH BIOPSY 4 - STOMACH BIOPSY 5 - ESOPHAGUS BIOPSY Procedures: GROSS AND MICRO LEVEL 4 Comments: [id number]
[2023-10-18 13:31] VITALS: BP 97/60; PULSE 75; RESP 16; TEMP 36.5; O2SAT 93
--- NOTE | 2023-10-18 13:35 | W.ANESPOSTOP ---
Postoperative Evaluation Date, Time and Location Date Performed: 10/18/23 Time Performed: 13:46 Patient Location: Day Surgery Unit Vital Signs Most Recent Imported Vital Signs: Most Recent Vital Signs Temp Pulse Resp BP Pulse Ox 36.5 C 75 16 97/60 L 93 10/18/23 13:31 10/18/23 13:31 10/18/23 13:31 10/18/23 13:31 10/18/23 13:31 Pain Score Most Recent Pain Score: Most Recent Pain Score Pain Level 0 10/18/23 13:31 Assessment Mental Status: Arousable with meaningful communication Airway and Respiratory Function: Patent airway with normal (patient baseline) respiratory exam Cardiovascular Function: Hemodynamically Stable Hydration Status: Adequately Hydrated Nausea & Vomiting: No Nausea or Vomiting Pain: Pt. Denies Any Pain Peripheral Nerve Block: Patient did not receive a nerve block
[2023-10-18 14:01] VITALS: BP 132/63; PULSE 56; RESP 16; TEMP 36.6; O2SAT 56
--- NOTE | 2023-10-18 15:04 | W.PM.ENDDOP ---
Date of service: 10/18/23 Time of Service: 13:25 Endoscopy Report PROCEDURE DESCRIPTION: PROCEDURES PERFORMED: 1. EGD with biopsies 2. Cold forceps polypectomy PREOPERATIVE DIAGNOSIS: Postprandial nausea POSTOPERATIVE DIAGNOSIS: Gastric polyps, small (subcentimeter) sliding (type I) hiatal hernia(Hill grade 1), bile reflux gastropathy SURGEON: Travis Smith MD INDICATION FOR PROCEDURE: 53-year-old woman who had a sleeve gastrectomy and hiatal hernia repair 14 or 15 years ago and if she had some postprandial nausea and vague discomfort since. She had her gallbladder removed a year ago and has been losing weight because she is no longer eating the way she used to. FINDINGS: D2/D3 = normal -multiple biopsies were taken (x 4) to rule out celiac disease D1/bulb = normal - no ulcers or inflammation Pylorus = normal Antrum = normal appearance, no ulcers, cold forceps biopsies were taken to rule out H. pylori routinely. A scant amount of bile?tinged fluid is noted in the antrum consistent with bile reflux clinically. Body = normal Fundus = normal, 10?15 benign?appearing polyps. 1 removed with cold forceps technique to confirm benign histology. Cardia = normal Hiatus = very small hiatal defect with a very small subcentimeter slide, Hill grade 1 defect. Distal esophagus = no inflammation, no esophagitis, no Tang's, no stricture. I took biopsies here despite it appearing normal and not inflamed. Mid esophagus = normal Proximal esophagus/hypopharynx/vocal cords = normal SURVEILLANCE-INTERVAL/FOLLOW-UP: Patient can follow-up with her PCP as needed. The hiatal hernia is very small and would not be considered the cause of nausea. Specimens: Yes EBL: Minimal COMPLICATIONS: None Procedure in detail: The patient gave written consent and was in agreement with the indications, the potential risks as well as the benefits of the procedure. The patient was taken to the endoscopy suite and laid on their left side. Anesthesia was given which was tolerated well. We performed a timeout and we are in agreement I started the procedure. A well-lubricated endoscope was gently and carefully advanced down the esophagus, into the stomach the scope was and through the pylorus into the duodenum. The scope was then slowly withdrawn with the above-noted findings/interventions. The patient tolerated the procedure well.
--- NOTE | 2023-10-18 15:04 | W.PM.DSUDISC ---
Date of service: 10/18/23 Time of Service: 15:04 Discharge Plan Disposition Patient Disposition: Home Condition: Good Discharge Details Attending Provider: Heron Smith Primary Care Provider: Silvia Muñoz Home Meds and New Rx's Prescriptions: No Action nzhehserhz-avbvrdpufmqnk-feeb [Esgic] 50-325-40 mg tablet 1 tab PO Q6H PRN Patient Comments: for headache MethylPro 15 mg PO DAILY Patient Comments: Mood (recommended by psychiatry) Mirena 20 mcg/24 hours (5 yrs) 52 mg intrauterine device 1 device IY ONCE cholecalciferol (vitamin D3) 125 mcg (5,000 unit) capsule 125 mcg PO DAILY omega-3 fatty acids [Fish Oil Concentrate] 1,000 mg capsule 1,000 mg PO DAILY clonazepam 0.5 mg tablet 0.5 mg PO DAILY PRN (Reason: acute anxiety) Qty: 30 1RF bupropion HCl 300 mg tablet extended release 24 hr See Rx Instructions .ROUTE .COMPLEX Qty: 90 3RF Dose Instruction: TAKE 1 TABLET BY MOUTH EVERY MORNING FOR DEPRESSION Rx Instructions: TAKE 1 TABLET BY MOUTH EVERY MORNING FOR DEPRESSION ibuprofen 600 mg tablet 600 mg PO TID PRN (Reason: pain) Qty: 60 1RF Hold Instructions: Home Medication placed on hold at Doctor's office Rx Instructions: Take with food PRN pain magnesium 200 mg tablet 400 mg PO DAILY gabapentin 600 mg tablet See Rx Instructions .ROUTE .COMPLEX Qty: 145 1RF Dose Instruction: TAKE 1 TO 1 AND 1/2 TABLETS AT BEDTIME FOR HOT FLASHES, NIGHT-TIME ANXIETY Rx Instructions: TAKE 1 TO 1 AND 1/2 TABLETS AT BEDTIME FOR HOT FLASHES, NIGHT-TIME ANXIETY ondansetron 4 mg tablet,disintegrating 4 mg PO Q8H PRN (Reason: nausea and vomiting) Qty: 20 1RF pantoprazole 40 mg tablet,delayed release (DR/EC) See Rx Instructions .ROUTE .COMPLEX Qty: 90 1RF Dose Instruction: TAKE ONE TABLET BY MOUTH EVERY MORNING FOR GERD/HEARTBURN Rx Instructions: TAKE ONE TABLET BY MOUTH EVERY MORNING FOR GERD/HEARTBURN bupropion HCl 150 mg tablet extended release 24 hr 150 mg PO QAM Qty: 90 3RF Hold Instructions: Home Medication placed on hold at Doctor's office Rx Instructions: Take with 300mg for TDD 450mg valacyclovir [Valtrex] 500 mg tablet 500 mg PO DAILY Qty: 90 0RF Rx Instructions: HSV suppression Discharge Instructions Additional Instructions: No significant inflammation was seen. Multiple biopsies were taken to rule out inflammatory microscopic conditions. You will get called with those results in a few days/weeks. Some stomach polyps were seen today. These are benign and secondary to antisecretory medication. Stand Alone Forms: Anesthesia Discharge Inst., DSU Post EGD Instructions, Alden Cortez (DSU) Activity:: Activity as Tolerated Diet:: As Tolerated
--- NOTE | 2023-10-18 15:10 | NUR.NOTE ---
15:05pm on 10/18/23 - Patient and her SO Randi were provided with verbal, and printed instructions on post anesthesia instructions, and EGD post op instructions. Dr. Mendoza saw patient bedside post procedure. Anesthesia post op assessment and report provided per policy. All patient and SO questions answered. Patient and SO provided verbal understanding of all post op instructions. Patient VSS. No patient reports of pain or nausea. Patient meets discharge requirements per facility policy. Beth Mckeon RN Nursing Note:
== END 2023-10-18 15:17 | disposition home or self-care (01) ==
PROVIDERS: PCP Nurse Practitioner Adult Health; Visit Provider Student in an Organized Health Care Education/Training Program
PROC: 0DJ68ZZ Inspection of Stomach, Via Natural or Artificial Opening Endoscopic (ICD-10-PCS; CPT 43235; principal; 2023-10-18 12:30)
DX: K21.9 Gastro-esophageal reflux disease without esophagitis (principal); R11.2 Nausea with vomiting, unspecified; K44.9 Diaphragmatic hernia without obstruction or gangrene; K31.7 Polyp of stomach and duodenum; E78.70 Disorder of bile acid and cholesterol metabolism, unspecified; K20.90 Esophagitis, unspecified without bleeding; K31.89 Other diseases of stomach and duodenum
CPT/HCPCS: 43239; 00123; 88305; J2704

== ENCOUNTER 2024-06-12 14:37 | Emergency (ER) | payer BC, SELFPAY ==
[2024-06-12 14:57] VITALS: BP 149/76; PULSE 89; RESP 14; TEMP 36.6; O2SAT 97
--- NOTE | 2024-06-12 16:04 | ED.GENADUL_ITS ---
Discharge Plan Disposition Patient Disposition: Home Condition: Stable Discharge Details Clinical Impression: Finger laceration Primary Care Provider: Silvia Muñoz ED Provider: Diana Smith Home Meds and New Rx's Prescriptions: Continued xqowcwnqfu-owkrxapvhbqcp-bxhl [Esgic] 50-325-40 mg tablet 1 tab PO Q6H PRN Patient Comments: for headache MethylPro 15 mg PO DAILY Patient Comments: Mood (recommended by psychiatry) Mirena 20 mcg/24 hours (5 yrs) 52 mg intrauterine device 1 device IY ONCE cholecalciferol (vitamin D3) 125 mcg (5,000 unit) capsule 125 mcg PO DAILY omega-3 fatty acids [Fish Oil Concentrate] 1,000 mg capsule 1,000 mg PO DAILY clonazepam 0.5 mg tablet 0.5 mg PO DAILY PRN (Reason: acute anxiety) Qty: 30 1RF ibuprofen 600 mg tablet 600 mg PO TID PRN (Reason: pain) Qty: 60 1RF Rx Instructions: Take with food PRN pain magnesium 200 mg tablet 400 mg PO DAILY ondansetron 4 mg tablet,disintegrating 4 mg PO Q8H PRN (Reason: nausea and vomiting) Qty: 20 1RF pantoprazole 40 mg tablet,delayed release (DR/EC) See Rx Instructions .ROUTE .COMPLEX Qty: 90 1RF Dose Instruction: TAKE ONE TABLET BY MOUTH EVERY MORNING FOR GERD/HEARTBURN Rx Instructions: TAKE ONE TABLET BY MOUTH EVERY MORNING FOR GERD/HEARTBURN bupropion HCl 150 mg tablet extended release 24 hr 150 mg PO QAM Qty: 90 3RF Rx Instructions: Take with 300mg for TDD 450mg bupropion HCl 300 mg tablet extended release 24 hr See Rx Instructions .ROUTE .COMPLEX Qty: 90 3RF Dose Instruction: TAKE ONE TABLET BY MOUTH EVERY MORNING FOR DEPRESSION Rx Instructions: TAKE ONE TABLET BY MOUTH EVERY MORNING FOR DEPRESSION gabapentin 600 mg tablet See Rx Instructions .ROUTE .COMPLEX Qty: 145 1RF Dose Instruction: TAKE 1 TO 1 & 1/2 TABLETS BY MOUTH AT BEDTIME FOR HOT FLASHES, NIGHT-TIME ANXIETY Rx Instructions: TAKE 1 TO 1 & 1/2 TABLETS BY MOUTH AT BEDTIME FOR HOT FLASHES, NIGHT-TIME ANXIETY valacyclovir 500 mg tablet See Rx Instructions .ROUTE .COMPLEX Qty: 90 3RF Dose Instruction: TAKE ONE TABLET BY MOUTH EVERY DAY Rx Instructions: TAKE ONE TABLET BY MOUTH EVERY DAY Discharge Instructions Instructions: Laceration Repair With Stitches ED Additional Instructions: Keep wound clean and dry for 24 hours After that you may wash with soap and water, do not submerge in water until sutures are removed Sutures can be removed in between 10 and 12 days Apply bacitracin daily In 3 to 4 days allowed to air dry at night to help with healing Please return with spreading redness, fever, worsening pain Keep covered while at work Stand Alone Forms: Work Release Referrals: Silvia Muñoz NP [Primary Care Provider] - Return if symptoms worsen HPI General Date/Time Provider Initiated Documentation: 06/12/24 15:07 . HPI Narrative: This 54-year-old female presents with injury to left middle finger on the printer at work. Tetanus is up-to-date. Denies strength or sensation change. The event occurred just prior to arrival. Denies history of coagulopathy. Related Data Home Medications ?Medication ?Instructions ?Recorded ?Confirmed levonorgestrel 21 mcg/24 hr (up to 1 device intrauterine ONCE 03/09/19 06/12/24 8 years) 52 mg intrauterine device (Mirena) ovcpaipseo-txmrimaadfsdi-qbusysst 1 tab PO Q6H PRN 03/21/19 06/12/24 50 mg-325 mg-40 mg tablet (Esgic) MethylPro 15 mg PO DAILY 02/18/21 06/12/24 cholecalciferol (vitamin D3) 125 125 mcg PO DAILY 03/18/21 06/12/24 mcg (5,000 unit) capsule clonazepam 0.5 mg tablet 0.5 mg PO DAILY PRN acute anxiety 05/16/21 06/12/24 #30 tabs omega-3 fatty acids 1,000 mg 1,000 mg PO DAILY 05/16/21 06/12/24 capsule (Fish Oil Concentrate) ibuprofen 600 mg tablet 600 mg PO TID PRN pain #60 tabs 01/21/23 06/12/24 magnesium 200 mg tablet 400 mg PO DAILY 04/13/23 06/12/24 ondansetron 4 mg disintegrating 4 mg PO Q8H PRN nausea and 07/12/23 06/12/24 tablet vomiting #20 tabs pantoprazole 40 mg tablet,delayed See Rx Instructions .Route 08/04/23 06/12/24 release .COMPLEX #90 tabs bupropion HCl 150 mg 24 hr tablet, 150 mg PO QAM #90 tabs 08/09/23 06/12/24 extended release bupropion HCl 300 mg 24 hr tablet, See Rx Instructions .Route 02/10/24 06/12/24 extended release .COMPLEX #90 tabs gabapentin 600 mg tablet See Rx Instructions .Route 02/10/24 06/12/24 .COMPLEX #145 tabs valacyclovir 500 mg tablet See Rx Instructions .Route 05/28/24 06/12/24 .COMPLEX #90 tabs Previous Rx's ?Medication ?Instructions ?Recorded clonazepam 0.5 mg tablet 0.5 mg PO DAILY PRN acute anxiety 05/16/21 #30 tabs ibuprofen 600 mg tablet 600 mg PO TID PRN pain #60 tabs 01/21/23 ondansetron 4 mg disintegrating 4 mg PO Q8H PRN nausea and 07/12/23 tablet vomiting #20 tabs pantoprazole 40 mg tablet,delayed See Rx Instructions .Route 08/04/23 release .COMPLEX #90 tabs bupropion HCl 150 mg 24 hr tablet, 150 mg PO QAM #90 tabs 08/09/23 extended release bupropion HCl 300 mg 24 hr tablet, See Rx Instructions .Route 02/10/24 extended release .COMPLEX #90 tabs gabapentin 600 mg tablet See Rx Instructions .Route 02/10/24 .COMPLEX #145 tabs valacyclovir 500 mg tablet See Rx Instructions .Route 05/28/24 .COMPLEX #90 tabs Allergies Allergy/AdvReac Type Severity Reaction Status Date / Time Sulfa (Sulfonamide Allergy rash on Verified 06/12/24 15:00 Antibiotics) trunk methocarbamol AdvReac Nausea Verified 06/12/24 15:00 morphine AdvReac Nausea Verified 06/12/24 15:00 General Stated Complaint: Laceration DRE: 4 Exam Narrative Exam Narrative: Have a laceration noted to the radial aspect of the distal right third digit, neurovascularly intact Course Vital Signs Vital signs: Vital Signs Temperature 36.6 C 06/12/24 14:57 Pulse 89 06/12/24 14:57 Respiratory Rate 14 06/12/24 14:57 Blood Pressure 149/76 H 06/12/24 14:57 Pulse Oximetry 97 06/12/24 14:57 Temperature 36.6 C 06/12/24 14:57 Temperature Source Oral 06/12/24 14:57 Pulse 89 06/12/24 14:57 Respiratory Rate 14 06/12/24 14:57 Blood Pressure 149/76 H 06/12/24 14:57 Blood Pressure Position Sitting 06/12/24 14:57 Pulse Oximetry 97 06/12/24 14:57 Oxygen Delivery Method Room Air 06/12/24 14:57 Oxygen Flow Rate 0 06/12/24 14:57 Pain Level 4 06/12/24 14:57 Procedure Laceration Laceration 1: Date of Procedure: 06/12/24 Time of procedure: 16:15 Provider that performed the procedure: Diana Smith Standard Time Out Performed: Yes Patient Consented: Verbally Site: other (3rd digit, hand) Side (If applicable): left Description: linear Depth: simple, single layer Local anesthetic: Lidocaine 1% Amount of anesthesia used (mL): 3 Pre-repair:: wound explored and irrigated extensively Skin layer closed with: nylon Size (cm): 5-0 Number of sutures:: 3 Technique: simple, interrupted Medical Decision Making 54-year-old female presenting with laceration to left second digit, sutures were placed #3, will need to be removed in 10 to 12 days. Work note supplied return precautions discussed in detail and patient expressed understanding. Quality:SDOH Health Related Social Needs: No Data to Display PFSH All Active Problems (Updated 06/12/24 @ 16:04 by DENNIS Mcneill) Finger laceration (Acute) Shoulder arthritis (Acute) GERD (gastroesophageal reflux disease) (Chronic) 10/18/23- EGD; On 10/22/23 @ 19:24 Heron Simth Wrote To Surgical [employer] Please let her know that there were no concerning findings on biopsy/path. This is essentially what we had discussed and predicted. Nausea and vomiting (Acute ~12/2022) Hot flashes due to menopause (Acute ~2020) Gabapentin Impaired fasting glucose (Chronic) Glucose 101 07/2019 Generalized anxiety disorder (Chronic) Sleeping difficulty (Chronic) CBD-Melatonin HSV (herpes simplex virus) infection (Chronic) Valtrex daily Headache (Chronic) Chronic intermittent; migraine Depression (Chronic) Wellbutrin Obesity (Chronic) Medical History (Updated 06/12/24 @ 16:04 by DENNIS Mcneill) COVID Cholelithiasis Common bile duct dilatation Cough with hemoptysis 09/25/19 Telehealth with [facility] [place] [place] Pulomonlogy; self-limited & resolved; Pulm states no further work-up needed, unless reoccurs--then revisit pulm with CT- chest, bronch, labs, etc. (Klaudia Sanches MD at [facility] [place] [place]) Mediastinal adenopathy 09/25/19 Telehealth with [facility] [place] [place] Pulmonology, No further F/U since condition resolved; if recurs-->[facility] [place] [place] Pulm/Monica Mina Granulomatous disease CT shows groundglass nodular opacities (with f/u resolved); [facility] [place] [place] Pulm Linden Mina MD ADD (attention deficit disorder) h/o Vyvanse (constipation) & Adderall use Surgical History (Updated 10/20/23 @ 14:41 by Adrienne Tadeo) History of esophagogastroduodenoscopy (EGD) (~09/2023) History of cholecystectomy (~07/2022) Pt states done in [place] Tarsal tunnel syndrome (~2009) [place] 2009 ([place]) Previous section (~2003) 2003 H/O breast augmentation (~05/2002) 2002 History of appendectomy (~1985) 1985 Gastric bypass status for obesity (~05/2009) Sleeve, 2010 ([place]) Family History Mother Anxiety Depression Hypertension Hyperlipidemia Diabetes T2 Father , From dementia with lewy body Anxiety Bladder cancer Depression Dementia Lewy body Social History (Updated 01/21/23 @ 16:36 by Tara Young RN) Smoking/Tobacco Use Status: Never Smoking risk assessment performed?: Yes Alcohol Intake: current Alcohol Intake frequency: a few times a month Drug use: Occasionally Substance use type: marijuana Details: No IV Drug Use Adopted: No Caregiver/Support person: No Foster care: No Household members: spouse and children Housing: house Number of Children: 1 number of grandchildren: 0 Communication Needs: None and Corrective Lenses Education Level: master's degree Do you need help understanding health information?: Never 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 Pets and animals: Yes (1 cat & 4 dogs) Pets and animals: cat(s) and dog(s) Sexually active: Yes Do you think of yourself as: lesbian/tello/homosexual Current gender identity: female What is your relationship status?: How often do you talk on the phone with friends or family?: once per week How often do you get together with friends or relatives?: once per week Do you belong to any clubs or organized social groups?: no Panel score (0-1 are the most socially isolated patients): 1 What type of physical activity do you participate in: walking Duration: 45-60 minutes/day Frequency: 3-4 times per week Special jerman needs: No Seatbelt use: always Helmet use: Yes Drive intox or ride w/intox medical driver: No Working smoke detector in home: Yes Fire extinguisher in home: Yes Carbon monox detector in home: Yes Firearms in home: No Do you feel safe at home: Yes Do you feel safe in your relationship?: Yes History History 1 Para 1 Hx # Term Pregnancies Multiple births Hx # Pregnancies Ectopic pregnancies AB induced Hx Number of Living Children AB spontaneous
== END 2024-06-12 16:19 | disposition home or self-care (01) ==
PROVIDERS: Emergency Provider Physician Assistant; PCP Nurse Practitioner Adult Health
DX: S61.213A Laceration without foreign body of left middle finger without damage to nail, initial encounter (principal); X58.XXXA Exposure to other specified factors, initial encounter
CPT/HCPCS: 12001; J2003

== ENCOUNTER 2024-12-14 01:23 | Outpatient (CLI) | payer BC, SELFPAY ==
[2024-12-14 10:46] LABS: Abs Immature Grans 0.02 10^3/uL (0.0-0.06); HCT 39.5 % (36.0-46.0); HGB 12.9 g/dL (11.2-15.7); Immature Grans % 0.3 %; MCH 31.2 pg (27.0-33.0); MCHC 32.7 % (32.0-36.0); MCV 96 fL (80-95); MPV 9.7 fL (8.0-11.0); Platelet Count 306 10^3/uL (130-400); RBC 4.13 10^6/uL (3.93-5.22); RDW 12.1 % (11.7-14.6); RDW-SD 42.8 fL; WBC 6.23 10^3/uL (4.4-10.8)
[2024-12-14 11:01] LABS: Hemoglobin A1C 5.4 % (<5.7)
--- NOTE | 2024-12-14 11:24 | DI.MAMMO_ITS ---
Exam(s) MG MAMMO SCREENING 60 MIN DUR EXAM: MG MAMMO SCREENING 60 MIN DUR CLINICAL HISTORY: breast cancer screening,IMPLANTS,Z12.31 TECHNIQUE: Bilateral full field digital CC and MLO mammographic images were obtained with 3D tomosynthesis and utilizing computer aided detection (CAD). COMPARISON: Comparison is made with prior examinations. FINDINGS: The patient has bilateral breast implants. Masses/Architectural Distortion: No suspicious masses or areas of architectural distortion are present. Microcalcifications: No suspicious pleomorphic-type are seen. Skin Thickening/Nipple Retraction: None. IMPRESSION: 1. No significant interval change with no specific features of malignancy noted. 2. Unless there is more urgent need, screening mammography is recommended, as per [place] [employer] guidelines. BI-RADS Category 1 - Negative Breast Density - Category B - There are scattered areas of fibroglandular density. Breast density Category C or D implies that the patient has dense breast tissue. Dense breast tissue can make it harder to find cancer on a mammogram. Dense breast tissue is also associated with an increased risk of breast cancer. This information about the result of the mammogram report was provided to the patient to raise their awareness. Use this report when you speak with the patient about their risks for breast cancer, which includes their family history. At that time, you may recommend additional screening tests (Ultrasound or MRI) as these tests may add significant information. A negative radiographic report should not delay biopsy if a dominant or clinically suspicious mass is present. Up to ten percent of cancers are not identified on mammography. A negative report may reinforce clinical impression. Adenosis and dense breasts may obscure an underlying neoplasm. False positive reports average 6 to 10%. Patient will receive a letter notifying them of these results.
[2024-12-14 11:36] LABS: ALT 22 U/L (14-59); AST 15 U/L (15-37); Albumin 4.0 g/dL (3.4-5.0); Alkaline Phosphatase 80 U/L (46-116); Anion Gap 8.5 mmol/L (3-11); BUN 18 mg/dL (7-18); Bilirubin, Total 0.4 mg/dL (0.2-1.0); CO2 27.5 mmol/L (21.0-32.0); Calcium 9.3 mg/dL (8.5-10.1); Calculated LDL 122 mg/dL (<100); Chloride 107 mmol/L (98-107); Cholesterol 203 mg/dL (<200); Estimated GFR 86.42 (mL/min/1.73m2); Glucose 101 mg/dL (74-106); HDL Cholesterol 64 mg/dL (>or=50); Potassium 4.0 mmol/L (3.5-5.1); Sodium 143 mmol/L (136-145); TSH (W/Ref FT4) 1.21 uIU/mL (0.36-3.74); Total Protein 7.0 g/dL (6.4-8.2); Triglyceride 85 mg/dL (<150); Vitamin B12 381 pg/mL (193-986)
[2024-12-14 11:39] LABS: Folate > 20.0 ng/mL (8.6-20.0)
== END 2024-12-14 01:24 | disposition home or self-care (01) ==
PROVIDERS: PCP Nurse Practitioner Adult Health; Visit Provider Nurse Practitioner Adult Health
DX: Z12.31 Encounter for screening mammogram for malignant neoplasm of breast (principal); N95.1 Menopausal and female climacteric states; Z13.220 Encounter for screening for lipoid disorders; R42 Dizziness and giddiness; R73.01 Impaired fasting glucose; Z98.84 Bariatric surgery status
CPT/HCPCS: 36415; 77063; 77067; 80053; 80061; 82607; 82746; 83036; 84443; 85025

== ENCOUNTER 2025-03-16 09:15 | Outpatient (CLI) | payer BC, SELFPAY ==
[2025-03-16 10:18] LABS: Amylase 63 U/L (25-115)
[2025-03-16 10:20] LABS: ALT 25 U/L (14-59); AST 17 U/L (15-37); Albumin 4.0 g/dL (3.4-5.0); Alkaline Phosphatase 84 U/L (46-116); Anion Gap 9.0 mmol/L (3-11); BUN 13 mg/dL (7-18); Bilirubin, Total 0.4 mg/dL (0.2-1.0); CO2 29.0 mmol/L (21.0-32.0); Calcium 9.4 mg/dL (8.5-10.1); Chloride 106 mmol/L (98-107); Estimated GFR 74.57 (mL/min/1.73m2); Glucose 98 mg/dL (74-106); Lipase 35 U/L (<78); Potassium 4.1 mmol/L (3.5-5.1); Sodium 144 mmol/L (136-145); Total Protein 7.1 g/dL (6.4-8.2)
== END 2025-03-16 09:16 | disposition home or self-care (01) ==
LOC: LBO 09:15
PROVIDERS: PCP Nurse Practitioner Adult Health; Visit Provider Family Medicine
DX: R11.10 Vomiting, unspecified (principal); R10.13 Epigastric pain
CPT/HCPCS: 36415; 80053; 83690; 82150

== ENCOUNTER 2025-05-07 10:18 | Emergency (ER) | payer BC, SELFPAY ==
--- NOTE | 2025-05-07 10:30 | RT.EKG_ITS ---
APPROVED REPORT Exam: Resting ECG Reason for Exam: SOB Patient Location: E HR:67 bpm ECG Measurements Heart Rate 67 AXIS VT 178 P 79 QRSd 85 QRS 94 QT 394 T 75 QTc 415 Conclusion Sinus rhythm...normal P axis, V-rate 60- 99 Probable left atrial enlargement...P >50mS, <-0.10mV V1 No Occlusion CA
[2025-05-07 10:32] VITALS: BP 146/84; PULSE 68; RESP 18; TEMP 36.3; O2SAT 94
--- NOTE | 2025-05-07 10:45 | DI.RAD_ITS ---
Exam(s) XR CHEST 2V PA LATERAL EXAM: XR CHEST 2V PA LATERAL CLINICAL HISTORY: Chest pain TECHNIQUE: 2D digital imaging was performed. Two views. COMPARISON: CT CT CHEST W from 09/06/2019 FINDINGS: Monitoring leads are coiled over the chest. HEART: Normal size. Aorta: Not dilated. PULMONARY VASCULATURE: Normal. MEDIASTINUM: Unremarkable. LUNGS: Clear. PLEURAL SPACE: No pleural effusion or pneumothorax. BONE:Unremarkable for age. SOFT TISSUES: Surgical clips at left upper quadrant. IMPRESSION: No acute abnormality. DATA REPOSITORY: RADIATION DOSE DELIVERED:
--- NOTE | 2025-05-07 10:58 | W.ED.GENAD ---
Discharge Plan Disposition Patient Disposition: Home Condition: Good Discharge Details Clinical Impression: URI (upper respiratory infection) Primary Care Provider: Silvia Muñoz ED Provider: Cuca Gonzáles Home Meds and New Rx's Prescriptions: Continued acetylcysteine [NAC] 600 mg capsule 1,200 mg PO DAILY sucralfate 1 gram tablet 1 g PO QACHS Qty: 120 11RF metoclopramide HCl [Reglan] 10 mg tablet 10 mg PO QACHS Qty: 120 11RF Mirena 20 mcg/24 hours (5 yrs) 52 mg intrauterine device 1 device IY ONCE cholecalciferol (vitamin D3) 125 mcg (5,000 unit) capsule 125 mcg PO DAILY bupropion HCl 300 mg tablet extended release 24 hr See Rx Instructions .ROUTE .COMPLEX Qty: 90 3RF Dose Instruction: TAKE ONE TABLET BY MOUTH EVERY MORNING FOR DEPRESSION Rx Instructions: TAKE ONE TABLET BY MOUTH EVERY MORNING FOR DEPRESSION valacyclovir 500 mg tablet See Rx Instructions .ROUTE .COMPLEX Qty: 90 3RF Dose Instruction: TAKE ONE TABLET BY MOUTH EVERY DAY Rx Instructions: TAKE ONE TABLET BY MOUTH EVERY DAY levomefolate calcium 15 mg tablet 15 mg PO DAILY Qty: 90 3RF gabapentin 600 mg tablet See Rx Instructions .ROUTE .COMPLEX Qty: 145 1RF Dose Instruction: TAKE 1 TO 1 & 1/2 TABLETS BY MOUTH AT BEDTIME FOR HOT FLASHES, NIGHT-TIME ANXIETY Rx Instructions: TAKE 1 TO 1 & 1/2 TABLETS BY MOUTH AT BEDTIME FOR HOT FLASHES, NIGHT-TIME ANXIETY bupropion HCl 150 mg tablet extended release 24 hr 150 mg PO QAM Qty: 90 3RF Rx Instructions: Take with 300mg for TDD 450mg ondansetron 4 mg tablet,disintegrating See Rx Instructions .ROUTE .COMPLEX Qty: 20 6RF Dose Instruction: DISSOLVE ONE TABLET ON THE TONGUE EVERY 8 HOURS NEEDED FOR NAUSEA AND VOMITING Rx Instructions: DISSOLVE ONE TABLET ON THE TONGUE EVERY 8 HOURS NEEDED FOR NAUSEA AND VOMITING Discharge Instructions Instructions: Upper Respiratory Infection ED Additional Instructions: As we discussed, your physical exam, labs and imaging are reassuring here today. No evidence to suggest draining your heart, blood clot, severe bacterial infection, you are negative for flu and COVID. No indication that you have pancreatitis, no electrolyte abnormalities at this time. We are seeing a number of different viruses going around our emergency department recently that have left people very fatigued with many of the symptoms that you have been experiencing. Please continue to encourage supportive care and make sure that you are staying well-hydrated. Please continue to wash your hands frequently and try to rest is much as she can while you need. If you develop inability stay hydrated, shortness of breath, difficulty breathing or other new/worsening symptoms seek care urgently as again otherwise, please follow-up with primary care in 1 week for reevaluation. Stand Alone Forms: Portal Information, Work Release Referrals: Silvia Muñoz NP [Primary Care Provider, Medicine] [facility] General Date/Time Provider Initiated Documentation: 05/07/25 10:45. Limitations to Documentation: no limitations. Information obtained by: patient and RN notes reviewed. History of Present Illness 55 year old F presents to the emergency department with the chief complaint of fatigue, SOB, nausea, general unwell, described as moderate, Patient started experiencing this day(s) and it has been constant. No relieving factors improve symptom(s), No exacerbating factors reported . Patient notes cough, loss of appetite, nausea/vomiting and shortness of breath; denies chest pain, fever/chills, rash and weakness. Patient did receive the following treatments prior to arrival, none Related Data Home Medications ?Medication ?Instructions ?Recorded ?Confirmed levonorgestrel (Mirena) 1 device intrauterine ONCE 03/09/19 05/07/25 cholecalciferol (vitamin D3) 125 125 mcg PO DAILY 03/18/21 05/07/25 mcg (5,000 unit) capsule bupropion HCl 300 mg 24 hr tablet, See Rx Instructions .Route 02/10/24 05/07/25 extended release .COMPLEX #90 tabs valacyclovir 500 mg tablet See Rx Instructions .Route 05/28/24 05/07/25 .COMPLEX #90 tabs levomefolate calcium 15 mg tablet 15 mg PO DAILY #90 tabs 07/13/24 05/07/25 gabapentin 600 mg tablet See Rx Instructions .Route 07/31/24 05/07/25 .COMPLEX #145 tabs bupropion HCl 150 mg 24 hr tablet, 150 mg PO QAM #90 tabs 10/19/24 05/07/25 extended release ondansetron 4 mg disintegrating See Rx Instructions .Route 01/21/25 05/07/25 tablet .COMPLEX #20 tabs acetylcysteine 600 mg capsule (NAC) 1,200 mg PO DAILY 03/16/25 05/07/25 metoclopramide HCl 10 mg tablet 10 mg PO QACHS #120 tabs 03/16/25 05/07/25 (Reglan) sucralfate 1 gram tablet 1 g PO QACHS #120 tabs 03/16/25 05/07/25 Previous Rx's ?Medication ?Instructions ?Recorded bupropion HCl 300 mg 24 hr tablet, See Rx Instructions .Route 02/10/24 extended release .COMPLEX #90 tabs valacyclovir 500 mg tablet See Rx Instructions .Route 05/28/24 .COMPLEX #90 tabs levomefolate calcium 15 mg tablet 15 mg PO DAILY #90 tabs 07/13/24 gabapentin 600 mg tablet See Rx Instructions .Route 07/31/24 .COMPLEX #145 tabs bupropion HCl 150 mg 24 hr tablet, 150 mg PO QAM #90 tabs 10/19/24 extended release ondansetron 4 mg disintegrating See Rx Instructions .Route 01/21/25 tablet .COMPLEX #20 tabs metoclopramide HCl 10 mg tablet 10 mg PO QACHS #120 tabs 03/16/25 (Reglan) sucralfate 1 gram tablet 1 g PO QACHS #120 tabs 03/16/25 Allergies Allergy/AdvReac Type Severity Reaction Status Date / Time Sulfa (Sulfonamide Allergy rash on Verified 05/07/25 10:40 Antibiotics) trunk methocarbamol AdvReac Nausea Verified 05/07/25 10:40 morphine AdvReac Nausea Verified 05/07/25 10:40 General Stated Complaint: SOB DRE: 3 Review of Systems Constitutional Constitutional: Reports as per HPI, Denies chills, Denies fever(s) and Denies poor appetite Cardiovascular Cardiovascular: Reports as per HPI Respiratory Respiratory: Reports as per HPI, Denies chest congestion, Denies pain on inspiration and Denies pain with cough Gastrointestinal Gastrointestinal: Reports as per HPI, Denies abdominal pain, Denies diarrhea and Denies vomiting Musculoskeletal Musculoskeletal: Reports as per HPI and Denies back pain Integumentary/Breasts Skin/Breast: Reports as per HPI and Denies rash Neurologic Neurologic: Reports as per HPI Exam Const General: cooperative, healthy appearing, comfortable, no acute distress and well developed Nutritional Appearance: average body habitus and well nourished Orientation: alert, awake and oriented x3 [facility] Head: normal to inspection Ears: hearing grossly normal bilaterally Mouth: moist mucous membranes Chest Chest: normal inspection of the chest, normal palpation of entire chest wall and no crepitus Resp Effort & Inspection: normal respiratory effort, able to speak in complete sentences and no respiratory distress Auscultation: clear to auscultation bilaterally, no rales, no rhonchi and no wheezes Cardio Rate: regular rate Rhythm: regular rhythm Heart Sounds: S1 normal and S2 normal GI Inspection: normal to inspection, no edema and non-distended Palpation: soft, no guarding and nontender Auscultation: normal bowel sounds Skin General skin exam: no rashes or lesions noted Trauma: no lacerations or abrasions Neuro General: patient alert, patient awake and patient oriented x3 Cognition: normal cognition Gait: normal gait Extrem General: normal to inspection, capillary refill normal, no pedal edema, no calf tenderness and normal gait Course Vital Signs Vital signs: Vital Signs Temperature 36.3 C L 05/07/25 10:32 Pulse 68 05/07/25 10:32 Respiratory Rate 18 05/07/25 10:32 Blood Pressure 146/84 H 05/07/25 10:32 Pulse Oximetry 94 05/07/25 10:32 Temperature 36.3 C L 05/07/25 10:32 Temperature Source Oral 05/07/25 10:32 Pulse 68 05/07/25 10:32 Respiratory Rate 18 05/07/25 10:32 Blood Pressure 146/84 H 05/07/25 10:32 Blood Pressure Position Sitting 05/07/25 10:32 Pulse Oximetry 94 05/07/25 10:32 Oxygen Delivery Method Room Air 05/07/25 10:32 Oxygen Flow Rate 0 05/07/25 10:32 Medical Decision Making Patient is a pleasant 55-year-old female past medical history significant for GERD, ADD, granulomatous disease, mediastinal adenopathy, depression, status post gastric sleeve and cholecystectomy, presented with chief complaint of fatigue. Patient reports that she has been ill for just over a week with upper respiratory infection with cough, congestion. She reports that overall, those symptoms have improved. She feels that she has been able to improve this with the use of NAC at home. She has reports that she is currently being worked up for possible pancreatitis. Unclear etiology. Patient does not use any alcohol. Did have her gallbladder out historically. Patient also had recent unintentional weight loss. She denies any continued abdominal pain. No epigastric discomfort or pain rating into the back. She never had pancreatitis in the past. Is scheduled to see gastroenterology at [facility] per patient after recent follow-up with primary care. She denies any chest pain but states that she has had some pressure since the onset of the cough which does not slightly pleuritic. She comes in today because now she is much more fatigued and short of breath than typical. She states that she has had more fatigue but seems to be leading to some exertional symptoms but no significant chest pain. On exam, patient appears nontoxic. Resting comfortably no acute distress. Hemodynamically stable. She is afebrile. She appears well-hydrated. Lungs are clear. Normal bowel sounds and abdomen is soft and nontender. Patient's history in summary is that she has had a mild URI that has recently gotten worse. For this reason, I did consider bacterial pneumonia as a potential differential and feel that chest x-ray is appropriate. As she has also been more sedentary with this acute illness, considered potential pulmonary emboli. However, she does not have any calf tenderness or lower extremity edema. We did screening with a D-dimer is appropriate at this point. Will also complete viral testing. Patient also reports that she has been being worked up for pancreatitis so we will pleat her lipase. Notably, her lipase has been normal. While certainly not typically because of a cough and congestion, questioning if this is worsening but it could potentially be worsening her overall fatigue and malaise. She does not seem to have any significant indicators of ACS although we will obtain troponin out of abundance of caution with the exertional type symptoms. Labs reviewed. No leukocytosis. Stable H&H. D-dimer well within normal limits, no indication for CTA at this point. CMP within normal limits. Lipase within normal limits. Troponin within normal limits. As her symptoms have been going on for so long, she really does not fit classic symptoms for ACS, do not feel that repeat is warranted at this point. Also obtain a BNP given the exertional symptoms as well as the shortness of breath which also was within normal limits. She was negative for all viruses that were obtained. Chest x-ray reviewed by radiologist and was deemed to be without any acute abnormalities. I discussed these with the patient as well as her daughter. She is feeling somewhat improved. Encouraged supportive care. She was ambulatory with nursing staff on a pulse ox and did not have any hypoxia or significant vital sign alterations despite exerting herself. Advised likely viral URI and encouraged supportive care. Is possible that she has a viral repeat or new illness in the setting of having been recently ill. Strict precautions were discussed. Encourage close follow-up with primary care. All of her questions and concerns were addressed and she is in agreement this plan. Dictation completed using [employer] dictation software. Please excuse any errors or rubber washer anomalies that may remain. PFSH All Active Problems (Updated 05/07/25 @ 14:34 by DENNIS Molina) URI (upper respiratory infection) (Acute) LUQ abdominal pain (Acute ~03/2025) 04/12/25 [facility] Gastro Muscle weakness (Acute) Epigastric pain (Acute) 04/12/25 [facility] Gastro appointment Hot flashes due to menopause (Acute ~2020) Gabapentin Shoulder arthritis (Acute) Impaired fasting glucose (Chronic ~2019) Glucose 101 07/2019 Generalized anxiety disorder (Chronic) Sleeping difficulty (Chronic) CBD-Melatonin HSV (herpes simplex virus) infection (Chronic) Valtrex daily Headache (Chronic) Chronic intermittent; migraine Depression (Chronic) Wellbutrin Obesity (Chronic) Medical History (Updated 05/07/25 @ 14:34 by DENNIS Molina) Nausea and vomiting (~12/2022) GERD (gastroesophageal reflux disease) 10/18/23- EGD; On 10/22/23 @ 19:24 Heron Smith Wrote To Surgical Epic Cadence Analyst Please let her know that there were no concerning findings on biopsy/path. This is essentially what we had discussed and predicted. COVID Cholelithiasis Common bile duct dilatation Cough with hemoptysis 09/25/19 Telehealth with [facility] Pulomonlogy; self-limited & resolved; Pulm states no further work-up needed, unless reoccurs--then revisit pulm with CT-chest, bronch, labs, etc. (Linden Mina Pulm at [facility]) Mediastinal adenopathy 09/25/19 Telehealth with [facility] Pulmonology, No further F/U since condition resolved; if recurs-->[facility] Pulm/Monica Mina Granulomatous disease CT shows groundglass nodular opacities (with f/u resolved); [facility] Klaudia Mina MD ADD (attention deficit disorder) h/o Vyvanse (constipation) & Adderall use Surgical History (Updated 04/18/25 @ 18:54 by Solange Miller LPN) H/O gastric sleeve History of esophagogastroduodenoscopy (EGD) (~09/2023) History of cholecystectomy (~07/2022) Pt [place] done in [place] Tarsal tunnel syndrome (~2009) [place] 2009 ([place]) Previous section (~2003) 2003 H/O breast augmentation (~05/2002) 2002 History of appendectomy (~1985) 1985 Gastric bypass status for obesity (~05/2009) Sleeve, 2009 ([place]) Family History Mother Anxiety Depression Hypertension Hyperlipidemia Diabetes T2 Father , From dementia with lewy body Anxiety Bladder cancer Depression Dementia Lewy body Social History Smoking/Tobacco Use Status: Never Smoking risk assessment performed?: Yes Alcohol Intake: current Alcohol Intake frequency: a few times a month Drug use: Daily Substance use type: marijuana Details: No IV Drug Use Adopted: No Caregiver/Support person: No Foster care: No Household members: spouse and children Housing: house Number of Children: 1 number of grandchildren: 0 Communication Needs: None and Corrective Lenses Education Level: master's degree Do you need help understanding health information?: Never 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 Pets and animals: Yes (1 cat & 4 dogs) Pets and animals: cat(s) and dog(s) Sexually active: Yes Do you think of yourself as: lesbian/tello/homosexual Current gender identity: female What is your relationship status?: How often do you talk on the phone with friends or family?: once per week How often do you get together with friends or relatives?: once per week Do you belong to any clubs or organized social groups?: no Panel score (0-1 are the most socially isolated patients): 1 What type of physical activity do you participate in: walking Duration: 45-60 minutes/day Frequency: 3-4 times per week Special jerman needs: No Seatbelt use: always Helmet use: Yes Drive intox or ride w/intox assembly line driver: No Working smoke detector in home: Yes Fire extinguisher in home: Yes Carbon monox detector in home: Yes Firearms in home: No Do you feel safe at home: Yes Do you feel safe in your relationship?: Yes History History 1 Para 1 Hx # Term Pregnancies Multiple births Hx # Pregnancies Ectopic pregnancies AB induced Hx Number of Living Children AB spontaneous
[2025-05-07 11:48] LABS: Abs Immature Grans 0.00 10^3/uL (0.0-0.06); HCT 40.4 % (36.0-46.0); HGB 13.3 g/dL (11.2-15.7); Immature Grans % 0.0 %; MCH 30.9 pg (27.0-33.0); MCHC 32.9 % (32.0-36.0); MCV 94 fL (80-95); MPV 10.0 fL (8.0-11.0); Platelet Count 287 10^3/uL (130-400); RBC 4.30 10^6/uL (3.93-5.22); RDW 12.2 % (11.7-14.6); RDW-SD 42.4 fL; WBC 5.50 10^3/uL (4.4-10.8)
[2025-05-07 12:04] LABS: Lipase 39 U/L (<53); Magnesium 2.3 mg/dL (1.6-2.6)
[2025-05-07 12:05] LABS: ALT 14 U/L (10-49); AST 20 U/L (<34); Albumin 4.4 g/dL (3.2-5.0); Alkaline Phosphatase 77 U/L (46-116); Anion Gap 6.7 mmol/L (3-11); BUN 12 mg/dL (9-23); Bilirubin, Total 0.40 mg/dL (0.2-1.2); CO2 27.3 mmol/L (20.0-31.0); Calcium 9.6 mg/dL (8.3-10.6); Chloride 110 mmol/L (98-107); Glucose 89 mg/dL (74-106); Potassium 3.8 mmol/L (3.5-5.1); Sodium 144 mmol/L (136-145); Total Protein 7.0 g/dL (5.7-8.2)
[2025-05-07 12:10] LABS: Troponin I < 3 ng/L (<35)
[2025-05-07 12:17] LABS: D-Dimer 252 ng/mlFEU (<500)
[2025-05-07 13:11] LABS: Troponin I < 3 ng/L (<35)
[2025-05-07 14:11] LABS: COVID-19 PCR Negative (Negative); RSV PCR Negative (Negative)
[2025-05-07 14:30] VITALS: RESP 18
--- NOTE | 2025-05-07 14:33 | NUR.NOTE ---
Nursing Note: this RN ambulated with pt around nurses bubble pt started with spo2 94% RA dropped to 93% RA with a pules of 78
== END 2025-05-07 15:36 | disposition home or self-care (01) ==
PROVIDERS: Emergency Provider Physician Assistant; PCP Nurse Practitioner Adult Health
DX: J06.9 Acute upper respiratory infection, unspecified (principal); R06.02 Shortness of breath; R11.0 Nausea
CPT/HCPCS: 99283; 99284; 36415; 80053; 83690; 87637; 93005; 71046; 83735; 83880; 84484; 85025; 85379; 93010